=== PATIENT | male | born 1980 | race Hispanic/Latino ===

== ENCOUNTER 2019-09-07 08:26 | Emergency (ER) | payer SELFPAY ==
--- NOTE | ~2019-09-07 | XR_ITS ---
EXAMINATION: XR knee LT min 4V DATE: 09/07/2019 09:00 INDICATION: Medial left knee pain 5 days after being hit with a brick TECHNIQUE: Anteroposterior, 2 oblique and crosstable lateral views of the left knee were obtained COMPARISON: None. FINDINGS: Alignment is normal. No fracture. Joint spaces appear normal on nonweightbearing imaging. No joint e ffusion/layering lipohemarthrosis. Corticated ossicles at the distal patellar tendon consistent with sequela of chronic Strasburg-Schlatter's disease. Soft tissues are unremarkable. IMPRESSION: 1. No left knee joint effusion or acute osseous abnormality. Reviewed, dictated and finalized at location A.
--- NOTE | 2019-09-07 08:34 | ED.LOWEXIN ---
HPI - Extremity Injury (Lower) General Chief Complaint: Extremity Injury, Lower Stated Complaint: knee pain Time Seen by Provider: 09/07/19 09:00 Source: patient and RN notes reviewed Mode of arrival: ambulatory Limitations: language barrier (Patient's son able to translate) History of Present Illness HPI Narrative: 39-year-old male presents with concern for left knee injury. Reports while working he hit his left knee on a brick. Reports pain has continued for 1 week. Reports taking Tylenol with little relief. Reports pain with range of motion, weightbearing, occasionally at rest. MD complaint: knee injury Injury: Left: knee Related Data Allergies Allergy/AdvReac Type Severity Reaction Status Date / Time No Known Allergies Allergy Verified 09/07/19 08:51 Review of Systems Review of Systems: Narrative: CONSTITUTIONAL: Denies malaise, chills, sweats, or fever. CARDIOVASCULAR: Denies chest pain, palpitations, or edema. RESPIRATORY: Denies dyspnea. SKIN: Denies bruising, redness MUSCULOSKELETAL: Reports left knee pain NEUROLOGIC: Denies numbness, weakness. All systems reviewed & are unremarkable except as noted in HPI and below PMFSH Comments At time of signature, agree with nursing past medical, surgical, social and family history. There is no relevant family history pertinent to the presenting complaint Exam Narrative: Exam Narrative: GENERAL: Well-appearing, well-nourished, and in no acute distress. HEAD: Normocephalic, atraumatic. EYES: PERRLA, conjunctivae clear NECK: Supple. CHEST: Speaks in full sentences. No respiratory distress. HEART: Regular rate and rhythm. Normal and equal peripheral pulses. EXTREMITIES: Left knee has normal strength and sensation, no edema, normal range of motion. 5/5 strength with knee flexion and extension. Normal sensation with sensitivity to light touch and pain. No open wounds, no skin tenting, no devitalized tissue or atrophy, no trophic changes, no ecchymosis, no obvious deformity, alignment normal, medial tenderness, nearby joints and structures intact. Distal pulses palpable and equal bilaterally, skin warm, dry, pink. Capillary refill less than 3 seconds. Lever test and anterior drawer test negative SKIN: Warm, dry, no rash. NEURO: Alert and oriented x3. PSYCH: Normal mood and affect Course Course Emergency Course: Patient is aware of diagnosis, understands and agrees to treatment plan. Anticipatory guidance given. Patient agrees to follow-up as directed and is aware of reasons to seek care at the emergency department. Portions of this record may have been created with voice recognition software Vital Signs Vital signs: Vital Signs Temperature 98.9 F 09/07/19 08:51 Pulse Rate 79 09/07/19 08:51 Respiratory Rate 16 09/07/19 08:51 Blood Pressure 159/117 H 09/07/19 08:51 Pulse Oximetry 100 09/07/19 08:51 Temperature 98.9 F 09/07/19 08:51 Pulse Rate 79 09/07/19 08:51 Respiratory Rate 16 09/07/19 08:51 Blood Pressure 159/117 H 09/07/19 08:51 Pulse Oximetry 100 09/07/19 08:51 Reviewed. MDM - Extremity Injury (Lower) MDM Narrative Medical decision making narrative: Patients injury and pain is consistent with musculoskeletal etiology. No signs of neurological or vascular compromise on exam. Compartments and tissues are soft without signs of compartment syndrome. Pain is felt appropriate for further evaluation on an outpatient basis. Imaging Data My impression: Images reviewed, interpreted by radiologist, agree, see report. Radiologist's impression: EXAMINATION: XR knee LT min 4V DATE: 09/07/2019 09:00 INDICATION: Medial left knee pain 5 days after being hit with a brick TECHNIQUE: Anteroposterior, 2 oblique and crosstable lateral views of the left knee were obtained COMPARISON: None. FINDINGS: Alignment is normal. No fracture. Joint spaces appear normal on nonweightbearing imaging. No joint effusion/layering lipohemarthrosis. Corticated o
[2019-09-07 08:51] VITALS: BP 159/117; PULSE 79; RESP 16; TEMP 37.2; O2SAT 100
== END 2019-09-07 09:32 | disposition home or self-care (01) ==
PROVIDERS: Emergency Provider Nurse Practitioner
DX: S89.92XA Unspecified injury of left lower leg, initial encounter (principal); W22.8XXA Striking against or struck by other objects, initial encounter
CPT/HCPCS: 73564; 99203; G0463

== ENCOUNTER 2023-07-27 15:36 | Emergency (ER) | payer SELFPAY ==
[2023-07-27 15:49] VITALS: BP 141/88; PULSE 76; RESP 16; TEMP 37.1; O2SAT 99
--- NOTE | 2023-07-27 15:59 | ED.URI ---
HPI - URI/Sore Throat General Chief Complaint: Upper Respiratory Infection Stated Complaint: eyes itch,hurt,light sensitive, throat hurts Time Seen by Provider: 07/27/23 15:59 Source: patient Mode of arrival: ambulatory Limitations: no limitations Related Data Allergies Allergy/AdvReac Type Severity Reaction Status Date / Time No Known Allergies Allergy Verified 07/27/23 15:45 Course Vital Signs Vital signs: Vital Signs Temperature 37.1 C 07/27/23 15:49 Pulse Rate 76 07/27/23 15:49 Respiratory Rate 16 07/27/23 15:49 Blood Pressure 141/88 H 07/27/23 15:49 Pulse Oximetry 99 07/27/23 15:49 Oxygen Delivery Room Air 07/27/23 15:49 Temperature 37.1 C 07/27/23 15:49 Pulse Rate 76 07/27/23 15:49 Respiratory Rate 16 07/27/23 15:49 Blood Pressure 141/88 H 07/27/23 15:49 Pulse Oximetry 99 07/27/23 15:49 Oxygen Delivery Room Air 07/27/23 15:49 Discharge Plan Discharge Prescriptions: No Action ibuprofen 800 mg tablet 800 mg PO Q6H PRN (Reason: pain) Qty: 30 0RF Follow-up/Referrals: PHYSICIAN,[facility] [Primary Care Provider] -
--- NOTE | 2023-07-27 16:15 | ED.EYEPROB ---
HPI - Eye Problem General Chief complaint: Upper Respiratory Infection Stated complaint: eyes itch,hurt,light sensitive, throat hurts Time Seen by Provider: 07/27/23 15:59 Source: patient Mode of arrival: ambulatory Limitations: no limitations History of Present Illness HPI Narrative: 43-year-old male presents with complaint of redness and purulent drainage from both eyes for the past 3-4 days. Complaining of eye burning, itching and irritation. No vision changes. All systems reviewed and negative except as noted above. Related Data Allergies Allergy/AdvReac Type Severity Reaction Status Date / Time No Known Allergies Allergy Verified 07/27/23 15:45 Review of Systems Review of Systems: CONSTITUTIONAL: Denies fever, chills, or sweats. EYES: Denies visual changes . Reports redness, itching, discharge. ENT: Denies rhinorrhea, congestion, sore throat, or otalgia. CARDIOVASCULAR: Denies chest pain, palpitations, or edema. RESPIRATORY: Denies cough or dyspnea. GASTROINTESTINAL: Denies abdominal pain, nausea, vomiting, or diarrhea. GENITOURINARY: Denies dysuria or hematuria. SKIN: Denies rash or itching. MUSCULOSKELETAL: Denies back pain, joint pain, or myalgia. NEUROLOGIC: Denies headache, numbness, or weakness. PSYCHIATRIC: Denies anxiety or depression. All other systems reviewed are negative, except as documented in HPI. PMFSH Comments At time of signature, agree with nursing past medical, surgical, social and family history. There is no relevant family history pertinent to the presenting complaint. Exam Narrative: GENERAL: This is a well-nourished, well-developed patient, in no apparent distress. HEAD: normocephalic, atraumatic. EYES: PERRL. Sclera and conjunctiva erythematous bilaterally with purulent yellow drainage. Vision is grossly intact. EARS: External ears normal NOSE: External nose normal NECK: Neck supple, non-tender without lymphadenopathy, masses or thyromegaly. CARDIOVASCULAR: Regular rate and rhythm without murmurs, gallops, or rubs. RESPIRATORY: Clear to auscultation. Breath sounds equal bilaterally. No wheezes, rales, or rhonchi. SKIN: warm, Dry, intact with no suspicious lesions or rash, good texture and turgor. NEURO: awake, alert, and oriented to person, place and time. There were no obvious focal neurologic abnormalities. EXTREMITIES: No joint tenderness, effusion, or edema noted. Course Course Level of Care: Express Care Visit Vital Signs Vital signs: Vital Signs Temperature 37.1 C 07/27/23 15:49 Pulse Rate 76 07/27/23 15:49 Respiratory Rate 16 07/27/23 15:49 Blood Pressure 141/88 H 07/27/23 15:49 Pulse Oximetry 99 07/27/23 15:49 Oxygen Delivery Room Air 07/27/23 15:49 Temperature 37.1 C 07/27/23 15:49 Pulse Rate 76 07/27/23 15:49 Respiratory Rate 16 07/27/23 15:49 Blood Pressure 141/88 H 07/27/23 15:49 Pulse Oximetry 99 07/27/23 15:49 Oxygen Delivery Room Air 07/27/23 15:49 Reviewed MDM - Eye Problem MDM Narrative Medical decision making narrative: Patient is aware of diagnosis, understands and agrees to treatment plan. Anticipatory guidance given. Patient agrees to follow-up as directed and is aware of reasons to seek care at the emergency department. Portions of this record may have been created with voice recognition software Differential Diagnosis Differential diagnosis: Likely conjunctivitis Discharge Plan Discharge Clinical Impression: Acute bacterial conjunctivitis of both eyes Patient Disposition: Home, Self-Care Condition: Stable Instructions: Antibiotic Form, Conjunctivitis (ED) Additional Instructions: place antibiotic eyedrops as prescribed. Wash hands before and after placing eyedrops. Follow-up with your primary care physician if symptoms are not improving. Prescriptions: New polymyxin B sulf-trimethoprim 10,000 unit- 1 mg/mL drops 1 drp EACH EYE Q3H 7 Days Qty: 10 0
== END 2023-07-27 16:20 | disposition home or self-care (01) ==
PROVIDERS: Emergency Provider Nurse Practitioner Family
DX: H10.33 Unspecified acute conjunctivitis, bilateral (principal)
CPT/HCPCS: 99213; G0463

== ENCOUNTER 2023-11-05 16:33 | Emergency (ER) | payer SELFPAY ==
--- NOTE | 2023-11-05 16:39 | ECG_ITS ---
Test Date: 2023-11-05 16:57:17 Measurements Intervals [place] Rate: 83 P: 40 VA: 173 QRS: -8 QRSD: 104 T: 31 QT: 361 QTc: 425 Interpretive Statements SINUS RHYTHM LOW QRS VOLTAGE INCOMPLETE RIGHT BUNDLE BRANCH BLOCK BORDERLINE ECG No previous ECG available for comparison Electronically Signed On 11-06-2023 13:14:19 CDT by Nino Patel M.D.
--- NOTE | 2023-11-05 16:39 | ED.SYNCOPE ---
HPI - Syncope General Chief Complaint: Dizziness Stated Complaint: fainted 2x yesterday, works outside,dizzy Time Seen by Provider: 11/05/23 16:36 Source: patient Mode of arrival: ambulatory Limitations: no limitations History of Present Illness HPI narrative: Onur is a 43-year-old male patient presenting to the clinic today with complaints of syncopal episode outside x2 yesterday and experiencing dizziness today. He reports he has been working outside in the heat over the past few days. Is states that he had cramping in his abdomen and in his lower extremities yesterday. 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 Denies any chest pain, shortness breath, or visual changes. No past cardiac history. Related Data Allergies Allergy/AdvReac Type Severity Reaction Status Date / Time No Known Allergies Allergy Verified 07/27/23 15:45 Review of Systems Review of Systems: Pertinent positives per HPI. Patient denies any fever, chills, rash, headache, visual changes, cough, runny nose, sore throat, shortness of breath, chest pain, palpitations, nausea, vomiting, diarrhea, constipation, abdominal pain, or any urinary issues. PMFSH Comments At the time of my signature, I reviewed and agree with the nursing past medical, surgical, social, and family history. There is no relevant family history pertinent to the patient complaint. Exam Narrative: General: Well-developed, well nourished, in no apparent distress Head: Normocephalic, atraumatic Eyes: Pupils equally round and reactive to light bilaterally, EOM intact, sclera and conjunctive clear, no discharge, lids normal Ears: TMs intact and clear, ear canals clear, no drainage, grossly hearing normal. Nose: Nares patent, no discharge, no inflammation, no sinus tenderness. Mouth: Oropharynx without lesions or masses, good dentition, MM dry. Tongue midline, even rise and fall of uvula Neck: Supple, trachea midline, no enlargement of anterior or posterior cervical nodes, no thyroid masses or goiter palpable. Cardio: Regular rate and rhythm, s1 and s2 normal, no murmur appreciated. Resp: Clear to auscultation bilaterally anteriorly and posteriorly, no rhonchi, rales, wheezing or rubs Musculoskeletal: No deformity, non-tender to palpation, grossly normal range of motion, muscle strength strong and equal, peripheral pulse strong, no edema, no cyanosis, normal gait and station Neuro: Alert and oriented x4 with normal speech, no focal deficits, cranial nerves I through XII intact, muscle strength 5 out of 5, sensation intact bilaterally, negative Romberg test Course Course Emergency Course: Portions of this record may have been created with voice recognition software. Level of Care: Express Care Visit Vital Signs Vital signs: Vital Signs Temperature 37.5 C 11/05/23 16:45 Pulse Rate 85 11/05/23 16:45 Respiratory Rate 16 11/05/23 16:45 Blood Pressure 128/81 11/05/23 16:45 Pulse Oximetry 98 11/05/23 16:45 Oxygen Delivery Room Air 11/05/23 16:45 Temperature 37.5 C 11/05/23 16:45 Pulse Rate 85 11/05/23 16:45 Respiratory Rate 16 11/05/23 16:45 Blood Pressure 128/81 11/05/23 16:45 Pulse Oximetry 98 11/05/23 16:45 Oxygen Delivery Room Air 11/05/23 16:45 Vital signs reviewed MDM - Syncope MDM Narrative Medical decision making narrative: At the time of visit patient is resting comfortably on the exam table. Patient appears to be nontoxic. EKG: EKG shows normal sinus rhythm with a heart rate of 83 beats per minute without ST elevation, depression, or T-wave inversion. Labs: Blood sugar was 106. Urinalysis shows 3+ blood and 1+ protein. Plan: I suspect patient had experienced heat exhaustion/dehydration/dizziness/proteinurea/hematuria. Recommend transfer to the ER to rule out acute kidney injury/electrolyte imbalance/ fluids. Patient would like to be transfer to [facility]
[2023-11-05 16:45] VITALS: BP 128/81; PULSE 85; RESP 16; TEMP 37.5; O2SAT 98
[2023-11-05 16:59] LABS: Glucose Point of Care 106 mg/dl (65-105)
[2023-11-05 17:10] LABS: EDUAAPPEAR Clear; EDUABILI Negative; EDUABLOOD 3+; EDUACOLOR1 Yellow; EDUAGLUCOSE Negative; EDUAKETONE Negative; EDUALEUKO Negative; EDUANITRATE Negative; EDUAPH 5.5; EDUAPROTEIN 1+; EDUASPGRAVITY 1.025; EDUAUROBILI 0.2
== END 2023-11-05 17:18 | disposition short-term general hospital (02) ==
PROVIDERS: Emergency Provider Nurse Practitioner Family
DX: R42 Dizziness and giddiness (principal); R31.9 Hematuria, unspecified; R80.9 Proteinuria, unspecified; T67.5XXA Heat exhaustion, unspecified, initial encounter; X32.XXXA Exposure to sunlight, initial encounter
CPT/HCPCS: 81003; 82948; 93005; 99213; G0463

== ENCOUNTER 2023-11-05 18:28 | Emergency (ER) | payer MEDICAID, SELFPAY ==
[2023-11-05] VITALS (16 sets, daily range): BP systolic 124–141; BP diastolic 85–95; PULSE 93; RESP 18; TEMP 37.1; O2SAT 94–99
--- NOTE | ~2023-11-05 | XR_ITS ---
EXAMINATION: XR chest 1V portable DATE: 11/05/2023 19:43 INDICATION: Syncope. TECHNIQUE: A single frontal view of the chest was obtained on 2 radiographs. COMPARISON: None. FINDINGS: There is no pneumonia, pleural effusion, or pneumothorax. The heart size is normal. IMPRESSION: 1. No acute cardiopulmonary disease. Reviewed, dictated and finalized at location A.
--- NOTE | ~2023-11-05 | CT_ITS ---
EXAMINATION: CT lumbar spine wo con DATE: 11/05/2023 21:40 INDICATION: Fall. TECHNIQUE: Computed tomography (CT) of the lumbar spine was performed without intravenous contrast. A utomated exposure control and iterative reconstruction technique were employed. The dose-length produ ct was 679.17 mGy-cm. COMPARISON: None FINDINGS: Alignment normal. Vertebral body heights are normal. There is mildly decreased disc height at L2-L3 with endplate remodeling. The following disc levels are specifically discussed: L1-L2: The disc does not extend beyond the endplate margin. There is moderate bilateral facet joint o steoarthritis. There is no neural foraminal stenosis. There is no central canal stenosis. L2-L3: The disc is bulging. There is mild bilateral facet joint osteoarthritis. There is no neural fo raminal stenosis. There is mild central canal stenosis. L3-L4: The disc is bulging. There is mild bilateral facet joint osteoarthritis. There is mild left ne ural foraminal stenosis. There is no central canal stenosis. L4-L5: The disc does not extend beyond the endplate margin. There is severe right and moderate left f acet joint osteoarthritis. There is no neural foraminal stenosis. There is no central canal stenosis. L5-S1: The disc is bulging. There is severe right and moderate left facet joint osteoarthritis. There is mild bilateral neural foraminal stenosis. There is mild central canal stenosis. IMPRESSION: 1. No fracture. 2. Mild lumbar spondylosis. Reviewed, dictated and finalized at location A.
--- NOTE | ~2023-11-05 | CT_ITS ---
EXAMINATION: CT facial bones wo con DATE: 11/05/2023 21:39 INDICATION: Fall. Syncope. TECHNIQUE: Computed tomography (CT) of the facial bones and maxillofacial region was performed withou t intravenous contrast. Automated exposure control and iterative reconstruction technique were employ ed. The dose-length product was 468.35 mGy-cm. COMPARISON: None. FINDINGS: The orbits are normal. There is mild mucosal thickening in the paranasal sinuses. The masto id air cells are normal. There is rightward deviation of the nasal septum. No fracture. IMPRESSION: 1. No fracture. Reviewed, dictated and finalized at location A. IMPRESSION: 1. No fracture.
--- NOTE | ~2023-11-05 | CT_ITS ---
EXAMINATION: CT brain wo con DATE: 11/05/2023 21:39 INDICATION: Fall. Syncope. TECHNIQUE: Computed tomography (CT) of the head was performed without intravenous contrast. The mA wa s adjusted according to patient size. Iterative reconstruction technique was employed. The dose-lengt h product was 605.33 mGy-cm. COMPARISON: None FINDINGS: There is no intracranial hemorrhage, acute infarction, or abnormal intracranial mass lesion . The ventricles are normal in size. The orbits are normal. There is mild mucosal thickening in the p aranasal sinuses. The mastoid air cells are normal. IMPRESSION: 1. Normal brain. Reviewed, dictated and finalized at location A. IMPRESSION: 1. Normal brain.
--- NOTE | 2023-11-05 19:30 | ECG_ITS ---
Test Date: 2023-11-05 20:05:07 Measurements Intervals [place] Rate: 77 P: 36 NV: 196 QRS: -2 QRSD: 94 T: 27 QT: 392 QTc: 444 Interpretive Statements SINUS RHYTHM INCOMPLETE RIGHT BUNDLE BRANCH BLOCK BORDERLINE ECG Compared to ECG 11/05/2023 16:57:17 NO DIFFERENCE Electronically Signed On 11-06-2023 13:16:28 CDT by Nino Patel M.D.
--- NOTE | 2023-11-05 19:53 | ED.DIZZY ---
HPI - Dizziness General Chief Complaint: Syncope Stated Complaint: heat exhaustion Time Seen by Provider: 11/05/23 19:02 History of Present Illness HPI Narrative: Patient is a 43-year-old male who presents to the emergency this evening from an urgent care due to a syncopal episode that occurred yesterday. 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 Patient then had another syncopal episode while standing and fell backward to the ground. Patient is also complaining of lower back pain and states that he has been having this pain on and off for the past 10 years but has noticed that it has gotten worse in the past year. Denies any chest pain or shortness of breath, any nausea or vomiting and denies any dizziness, focal weakness, numbness and tingling. Patient denies any significant past medical history and states that he only takes omeprazole for acid reflux. Patient is Indonesian-speaking and interpretations are presents were used to obtain HPI and ROS. Related Data Allergies Allergy/AdvReac Type Severity Reaction Status Date / Time No Known Allergies Allergy Verified 07/27/23 15:45 Review of Systems Review of Systems: All systems are reviewed and are negative unless stated otherwise in the HPI. Exam Narrative: General: Alert, awake, afebrile, in no acute distress. HEENT: PERRL, no rhinorrhea, no post nasal drip, oropharynx clear. Cardiovascular: Regular rate and rhythm, no murmurs, rubs or gallops, no peripheral edema. Respiratory: Clear to auscultation bilaterally, no tachypnea, no wheezing, no rhonchi, no rubs, no respiratory distress. Abdomen: Soft, nontender, nondistended, no rebound, no guarding, no peritoneal signs. Musculoskeletal: No joint swelling or deformity, normal muscle tone. Back: No midline tenderness to palpation over the cervical, thoracic or lumbar spine, no step-offs or deformities. Skin: No rashes or petechia, no signs of infection. Neurological: Alert and oriented to person, place, and time. Follows all commands. No focal deficits, speech is clear and fluent. Course Vital Signs Vital signs: Vital Signs Pulse Oximetry 97 11/05/23 18:42 Temperature 98.7 F 11/05/23 19:09 Pulse Rate 93 11/05/23 19:09 Respiratory Rate 18 11/05/23 19:09 Blood Pressure 141/95 H 11/05/23 20:02 Pulse Oximetry 95 11/05/23 20:02 Oxygen Delivery Room Air 11/05/23 19:15 MDM - Dizziness MDM Narrative Medical decision making narrative: The patient was evaluated by myself in the emergency department. History is obtained from patient who is an independent historian and physical exam was performed. External medical records were reviewed at this time. IV was established and pertinent tests were ordered. Patient was administered a 1 L IV fluid bolus with normal saline. EKG was obtained which revealed sinus rhythm rate of 77 beats per minute. No ST changes, T wave inversions or evidence of acute ischemia. EKG was independently interpreted by me and is currently pending official cardiology read. Laboratory results obtained revealing an elevated CPK of 340 otherwise unremarkable. At this time patient was administered a 2 L IV fluid bolus with normal saline. Urinalysis revealed 2+ blood otherwise unremarkable. Imaging studies obtained included CXR, CT brain, facial bones and lumbar spine without IV contrast were obtained and were all independently interpreted by me revealing no acute process. Pending final radiology interpretation. Patient was informed of his blood work and imaging results at bedside via Indonesian interpretation services in all of his questions were answered. Differential diagnosis considerations include dehydration, electrolyte derangements, heat exhaustion, arrhythmia. Comorbidities impacting this visit include none.
[2023-11-05] MEDS: SODIUM CHLORIDE 0.9% IV 1,000 ML 999 ML IV CONT ×2 (19:59→21:07)
[2023-11-05 20:11] LABS: Basophils Percent Auto 0.3 % (0.2-1.2); Eosinophils Absolute Auto 0.1 K/mm3 (0-0.3); Eosinophils Percent Auto 1.1 % (0-4.4); Hematocrit 42.1 % (42.0-52.0); Immature Granulocyte Absolute 0.02 K/mm3 (0.00-0.031); Immature Granulocyte Percent A 0.2 % (0-0.5); Lymphocytes Absolute Auto 3.18 K/mm3 (0.9-3.2); Lymphocytes Percent Auto 36.4 % (18.3-44.2); Mean Corpuscular HGB Conc 35.6 g/dl (32-36); Mean Corpuscular Hemoglobin 30.1 pg (26-34); Mean Corpuscular Volume 84.4 fl (80-100); Mean Platelet Volume 11.4 fl (7.4-10.4); Monocytes Absolute Auto 0.7 K/mm3 (0.1-0.6); Monocytes Percent Auto 7.6 % (2.6-8.5); Neutrophils Absolute Auto 4.8 K/mm3 (1.3-6.7); Neutrophils Percent Auto 54.4 % (45.5-73.1); Platelet Count Result 252 k/mm3 (150-375); Red Blood Count 4.99 M/mm3 (4.6-6.20); Red Cell Distribution Width 12.6 % (11.5-14.5); White Blood Count 8.7 K/mm3 (4.5-10.0)
[2023-11-05 20:24] LABS: Alanine Aminotransferase 52 U/L (6-50); Albumin Level 4.7 g/dL (3.5-5.1); Alkaline Phosphatase 117 U/L (38-126); Anion Gap 14 mmol/L (4-12); Aspartate Amino Transferase 48 U/L (17-59); Bilirubin,Total 0.4 mg/dL (0.2-1.3); Blood Urea Nitrogen 22 mg/dL (9-20); Calcium 8.9 mg/dL (8.4-10.2); Carbon Dioxide 24 mmol/L (22-30); Chloride 100 mmol/L (98-107); Creatine Kinase 340 U/L (55-170); Estimated CRCL calculation 75 ml/min; Estimated Glomerular Filt Rate > 60; Glucose 104 mg/dL (65-110); Magnesium 2.1 mg/dL (1.6-2.3); Potassium 3.7 mmol/L (3.4-5.0); Sodium 138 mmol/L (137-145)
[2023-11-05 21:47] LABS: Add Urine Microscopic? YES; Appearance Urine Clear (Clear); Bacteria Urine None Seen /hpf; Bilirubin Urine Negative (Negative); Blood Urine 2+ (Negative); Color Urine Yellow (Yellow); Glucose Urine UA Negative (Negative); Ketones Urine Negative (Negative); Leukocyte Esterase Ur Negative LEU/UL (Negative); Nitrate Urine Negative (Negative); Non Pathogenic Casts 0-2; Protein Urine Negative (Negative); RBC Urine 0-2 /hpf (0-2); Specific Grav Ur 1.017 (1.001-1.035); Squamous Epithelial Cell Urine None Seen /hpf (Few); Urobilinogen Urine 0.2 mg/dL (<2.0); WBC Urine 0-5 /hpf (0-3); pH Urine 5.5 (5.0-9.0)
== END 2023-11-05 23:07 | disposition home or self-care (01) ==
PROVIDERS: Emergency Provider Emergency Medicine
DX: T67.5XXA Heat exhaustion, unspecified, initial encounter (principal); E86.0 Dehydration; R55 Syncope and collapse; I45.10 Unspecified right bundle-branch block; M47.816 Spondylosis without myelopathy or radiculopathy, lumbar region; X30.XXXA Exposure to excessive natural heat, initial encounter
CPT/HCPCS: 36415; 70450; 70486; 71045; 72131; 80053; 81001; 81003; 82550; 82948; 83735; 85025; 93005; 96360; 96361; 99284; J7030

== ENCOUNTER 2023-11-06 15:55 | Observation (INO) | payer MEDICAID, SELFPAY ==
--- NOTE | ~2023-11-06 | US_ITS ---
US abdomen limited INDICATION: Epigastric discomfort PROCEDURE: Realtime right upper abdominal ultrasound. COMPARISON: No prior studies for comparison. FINDINGS: The pancreas is normal without focal mass or pancreatic ductal dilation. Liver echotexture is normal without focal mass or intrahepatic biliary dilatation. There is diffuse fatty infiltration of the liver with focal fatty sparing near the mckayla hepatis. There is normal directional flow in th e portal vein. The gallbladder is normal without stones, gallbladder wall thickening or pericholecystic fluid. There is gallbladder sludge. Common bile duct measures 4 mm. No sonographic Rothman's sign. IMPRESSION: 1: Fatty infiltration of the liver. 2: Gallbladder sludge. Reviewed, dictated and finalized at location B.
--- NOTE | ~2023-11-06 | CT_ITS ---
EXAMINATION: CT abdomen pelvis w con DATE: 11/06/2023 19:14 INDICATION: Abdominal pain. TECHNIQUE: Computed tomography (CT) of the abdomen and pelvis was performed with 100 mL Omnipaque 350 intravenous contrast. Automated exposure control and iterative reconstruction technique were employe d. The dose-length product was 466.85 mGy-cm. COMPARISON: None. FINDINGS: The visualized portions of the lung bases demonstrate mild atelectasis. No pleural effusion . The heart size is normal. No pericardial effusion. The liver, gallbladder, spleen, pancreas, adrena l glands, and kidneys are normal. There are no dilated loops of bowel. The appendix is normal. There is a left inguinal hernia containing fat. The prostate is mildly enlarged. There are no pathologicall y enlarged lymph nodes. There is no free intraperitoneal fluid. There is an umbilical hernia containi ng fat. There is mild thoracic and lumbar spondylosis. IMPRESSION: 1. Umbilical hernia and left inguinal hernia containing fat. Reviewed, dictated and finalized at location A.
--- NOTE | ~2023-11-06 | XR_ITS ---
EXAMINATION: XR chest 2V 11/06/2023 16:46 INDICATION: Abdominal pain. PROCEDURE: 2 view chest COMPARISON: 11/05/2023 FINDINGS: The lungs are clear. The cardiomediastinal silhouette is within normal limits. There are no pleural effusions. There is no pneumothorax suspected. IMPRESSION: 1: NO ACUTE CARDIOPULMONARY DISEASE. Reviewed, dictated and finalized at location B.
--- NOTE | ~2023-11-06 | US_ITS ---
EXAMINATION: US carotid duplex BI DATE: 11/07/2023 07:58 INDICATION: Syncope TECHNIQUE: Grayscale, color Doppler, and pulsed Doppler images of the cervical carotid arteries were obtained. The degree of vessel stenosis is placed in one of the following categories: normal, <50%, 5 0-69%, >=70% but less than near-occlusion, near-occlusion, or total occlusion. Note that percent sten osis relative to normal distal artery lumen diameter is indirectly measured from velocity measurement s as described by Demarco, et al. Radiology 2003; 229:340-346. Notes: Normal: Peak systolic velocity <125 centimeters/sec and no plaque <50%. Peak systolic velocity <125 ( EDV <40; ICA/CCA PSV ratio <2.0; used these factors only a tandem lesions or low cardiac output or co ntralateral disease) 50-69 %: PSV 125-230 (EDV 40-100; ratio 2-4) >= 70% but less than near occlusion: PSV greater than 230 (EDV > 100; ratio> 4.0) Near Occlusion: PSV that is variable; markedly narrowed lumen Occlusion: Absent flow on color/spectral Doppler and no lumen on burns scale. COMPARISON: None. FINDINGS: RIGHT: The right common carotid artery (CCA) peak systolic velocity (PSV) is 81 cm/s. The right internal car otid artery (ICA) PSV is 69 cm/s. The right ICA end-diastolic velocity (EDV) is 31 cm/s. The right IC A/CCA PSV ratio is 0.9. The external carotid artery (ECA) PSV is 60 cm/s. There is antegrade flow in the right vertebral artery. LEFT: The left CCA PSV is 76 cm/s. The left ICA PSV is 70 cm/s. The left ICA EDV is 31 cm/s. The left ICA/C CA PSV ratio is 0.9. The ECA PSV is 54 cm/s. There is antegrade flow in the left vertebral artery. IMPRESSION: 1. Less than 50% stenosis in the right internal carotid artery by sonographic criteria. 2. Less than 50% stenosis in the left internal carotid artery by sonographic criteria. Reviewed, dictated and finalized at location B. IMPRESSION: 1. Less than 50% stenosis in the right internal carotid artery by sonographic danyel loyola. 2. Less than 50% stenosis in the left internal carotid artery by sonographic douglas bustillos.
[2023-11-06 15:58] VITALS: BP 142/93; PULSE 80; RESP 16; TEMP 36.4; O2SAT 98
[2023-11-06 16:31] VITALS: BP 135/96; PULSE 79; RESP 17; O2SAT 95
--- NOTE | 2023-11-06 16:36 | ECG_ITS ---
Test Date: 2023-11-06 17:02:18 Measurements Intervals [place] Rate: 73 P: 47 [place]: 182 QRS: -8 QRSD: 96 T: 31 QT: 369 QTc: 409 Interpretive Statements SINUS RHYTHM INCOMPLETE RIGHT BUNDLE BRANCH BLOCK BORDERLINE ECG Compared to ECG 11/05/2023 20:05:07 NO DIFFERENCE Electronically Signed On 11-07-2023 07:27:46 CDT by Nino Patel M.D.
[2023-11-06 17:12] LABS: Basophils Percent Auto 0.4 % (0.2-1.2); Eosinophils Absolute Auto 0.1 K/mm3 (0-0.3); Eosinophils Percent Auto 0.7 % (0-4.4); Hemoglobin 14.7 g/dL (14.0-18.0); Immature Granulocyte Absolute 0.02 K/mm3 (0.00-0.031); Immature Granulocyte Percent A 0.3 % (0-0.5); Lymphocytes Percent Auto 30.6 % (18.3-44.2); Mean Corpuscular Volume 85.7 fl (80-100); Mean Platelet Volume 11.3 fl (7.4-10.4); Monocytes Absolute Auto 0.6 K/mm3 (0.1-0.6); Monocytes Percent Auto 8.8 % (2.6-8.5); Neutrophils Absolute Auto 4.3 K/mm3 (1.3-6.7); Neutrophils Percent Auto 59.2 % (45.5-73.1); Platelet Count Result 243 k/mm3 (150-375); Red Cell Distribution Width 12.8 % (11.5-14.5); White Blood Count 7.2 K/mm3 (4.5-10.0)
[2023-11-06 17:22] LABS: Alanine Aminotransferase 46 U/L (6-50); Albumin Level 4.5 g/dL (3.5-5.1); Alkaline Phosphatase 88 U/L (38-126); Anion Gap 11 mmol/L (4-12); Aspartate Amino Transferase 37 U/L (17-59); Bilirubin,Total 0.5 mg/dL (0.2-1.3); Blood Urea Nitrogen 13 mg/dL (9-20); Calcium 8.6 mg/dL (8.4-10.2); Carbon Dioxide 25 mmol/L (22-30); Chloride 102 mmol/L (98-107); Estimated CRCL calculation 101 ml/min; Estimated Glomerular Filt Rate > 60; Glucose 97 mg/dL (65-110); Lipase 79 U/L (23-300); Potassium 3.7 mmol/L (3.4-5.0); Sodium 138 mmol/L (137-145)
[2023-11-06 18:14] VITALS: BP 131/91; PULSE 70; RESP 18; O2SAT 95
--- NOTE | 2023-11-06 18:24 | ED.ABDPAIN ---
HPI - Abdominal Pain General Chief Complaint: Abdominal Pain Stated Complaint: abd pain, headache Time Seen by Provider: 11/06/23 16:10 History of Present Illness HPI narrative: Pt is a 43-year-old male who presents to the ER for second day in a row with complaints of two syncopal episodes, headache, and abdominal pain. He received a head CT scan yesterday and does not want to have another one tomorrow because he doesn't want the extra radiation. Pt endorses positive LOC. He reports he gets abdominal pain, then his head starts hurting and he gets tingling in my hands. Pt reports he has been taking Prilosec but it has not been helping his GERD. He had a bowel movement this morning and reports no abnormalities in his urination. He denies chest pain, shortness of breath, changes in vision, or one-sided numbness/weakness. Related Data Home Medications Medication Instructions Recorded Confirmed omeprazole 20 mg capsule,delayed 20 mg PO BID 11/06/23 11/06/23 release Allergies Allergy/AdvReac Type Severity Reaction Status Date / Time No Known Allergies Allergy Verified 11/06/23 22:45 Review of Systems Review of Systems: All systems reviewed & are unremarkable except as noted in HPI and below PMFSH Past Medical History Medical History (Updated 11/07/23 @ 02:38 by Ashok Bernardo PA-C) GERD with esophagitis Social History Social History Smoking status: Never smoker Alcohol intake: never Substance use: never Do You Feel Safe in your Home?: Yes Lack of Transportation: No Lack of Food: Never True Current Housing: I Have Housing Concerned About Future Housing: No Difficulty Paying Gas/Electric Bills: No Difficulty Paying for Meds: No Currently Unemployed: No Education: High School Diploma/GED Difficulty w/ Childcare or Family Care: No Spiritual care concerns: No Exam Narrative: GENERAL: Well-appearing, well-nourished and in no acute distress. HEENT: Head normocephalic, atraumatic. Eyes pupils equal round and reactive to light, extraocular movements intact. NECK: Supple, normal range of motion, no JVD. No lymphadenopathy. CARDIAC: Regular rate and rhythm without murmurs, rubs or gallops. RESPIRATORY: Clear to auscultation bilaterally. No wheezes, rales or rhonchi. ABDOMEN: Soft, nontender, normoactive bowel sounds throughout, no guarding, no rebound. No masses appreciated. EXTREMITIES: Normal range of motion, no swelling, clubbing or other deformities. NEUROLOGICAL: Cranial nerves II through XII grossly intact, no focal deficits noted. Normal speech. SKIN: Warm, dry, normal color, no rashes, no lesions. Course Vital Signs Vital signs: Vital Signs Temperature 97.6 F 11/06/23 15:58 Pulse Rate 80 11/06/23 15:58 Respiratory Rate 16 11/06/23 15:58 Blood Pressure 142/93 H 11/06/23 15:58 Pulse Oximetry 98 11/06/23 15:58 Temperature 97.2 F L 11/06/23 22:51 Pulse Rate 70 11/07/23 00:34 Respiratory Rate 18 11/06/23 22:51 Blood Pressure 134/97 H 11/07/23 00:34 Pulse Oximetry 96 11/06/23 22:51 Oxygen Delivery Room Air 11/06/23 22:30 MDM - Abdominal Pain MDM Narrative Medical decision making narrative: Pt is a 43-year-old male who presents to the ER for second day in a row with complaints of two syncopal episodes, headache, and abdominal pain. He received a head CT scan yesterday and does not want to have another one tomorrow because he doesn't want the extra radiation. Pt endorses positive LOC. He reports he gets abdominal pain, then his head starts hurting and he gets tingling in my hands. Pt reports he has been taking Prilosec but it has not been helping his GERD. He had a bowel movement this morning and reports no abnormalities in his urination. He denies chest pain, shortness of breath, changes in vision, or one-sided numbness/weakness. Pt's physical examination was un
[2023-11-06] MEDS: MAG HYDROX/AL HYDROX/SIMETH 30 ML UDC PO (19:07)
[2023-11-06] MEDS: SODIUM CHLORIDE 0.9% IV 1,000 ML 999 ML IV CONT (19:08)
[2023-11-06] MEDS: KETOROLAC 30 MG/ML VIAL (*BKC) IV PUSH (19:08)
[2023-11-06 19:52] LABS: Lactic Acid Reflex 1.2 mmol/L (0.7-2.0)
[2023-11-06 19:54] LABS: INR 0.9; Partial Thromboplastin Time 28.1 Seconds (22.3-36.8); Prothrombin Time 12.8 Seconds (11.1-14.7)
[2023-11-06 19:55] LABS: Magnesium 2.1 mg/dL (1.6-2.3)
[2023-11-06 20:08] LABS: NT Pro B Type Natriuretic Pept 49 pg/mL (19.9-100); Troponin I < 0.012 ng/mL (0.000-0.034)
[2023-11-06 20:09] LABS: D Dimer < 0.27 ug/mL (<0.48)
[2023-11-06 20:33] LABS: Influenza A QL RT-PCR Negative (Negative); Influenza B QL RT-PCR Negative (Negative); RSV RNA, RT-PCR Negative (Negative); SARS-CoV-2 RNA PCR Negative (Negative)
[2023-11-06 21:59] VITALS: BP 102/66; PULSE 72; RESP 18; TEMP 36.6; O2SAT 98
--- NOTE | 2023-11-06 22:17 | ADMGEN ---
This patient, Onur Guillermo, was admitted to Medical Room 349-01. Patient/family oriented to hospital policies and general routines including ID bracelet, bed and alarms, visiting hours, pain management, procedures, bathroom and other care routines, personal items, smoking policy, room service/diet, and visiting hours. Information on how to activate the Rapid Response Team has been discussed. Patient/Family are encouraged to report perceived risks to care and to ask questions if they do not understand what they are told or what they should do.
--- NOTE | 2023-11-06 22:26 | PM.IMHP ---
H&P: HPI History of Present Illness Date/Time: 11/06/23 22:26 Chief Complaint: Epigastric discomfort Narrative: This is a 43 year old male patient who came to the emergency room today with complaints of abdominal pain. This is his 2nd day in a row with complaints of 2 syncopal episodes and abdominal pain. He was year yesterday and had a CT scan and does not want a repeat CT scan. The patient stated that he has been taking Prilosec for his stomach and that does not seem to be helping. He also stated that he has been having abdominal pain for 3 years. He rates his pain a 5/10. He denies any nausea vomiting at this time. No diarrhea. Did not notice any blood in his stool. He also endorses a headache on the right side of his head. Today he was found to be negative for influenza A/B RSV and COVID. Abdominal pelvis CT was read as umbilical hernia and left inguinal hernia containing fat. However he is complaining of epigastric discomfort. Chest x-ray was read as no acute cardiopulmonary disease. The patient was given IV fluids Toradol and Mylanta as well as Zofran in the emergency room. His blood pressure is slightly elevated to 131/91 and 142/93. The patient is being admitted to observation status on the date of service of 11/06/2023. Review of Systems Review of Systems: All systems reviewed & are unremarkable except as noted in HPI and below Constitutional: Constitutional: Reports as per HPI and Reports no additional constitutional complaints Eyes: Eyes: Reports as per HPI and Reports no additional eye complaints ENT: Reports system reviewed and no additional complaints, except as documented and Reports Normal hearing present Cardiovascular: Cardiovascular: Reports no additional cardiovascular complaints Respiratory: Respiratory: Reports as per HPI and Reports no additional respiratory complaints Gastrointestinal: Gastrointestinal: Reports as per HPI and Reports no additional gastrointestinal complaints Musculoskeletal: Musculoskeletal: Reports no additional musculoskeletal complaints Integumentary/Breasts: Skin/Breast: Reports system reviewed and no additional complaints, except as docu Neurologic: Reports system reviewed and no additional complaints, except as documented and Reports Normal hearing present Psychiatric: Psychiatric: Reports no additional psychiatric complaints and Reports as per HPI Endocrine: Endocrine: Reports no additional endocrine complaints Hematologic/Lymphatic: Hematologic/Lymphatic: Reports no additional hematologic/lymphatic complaints Allergic/Immunologic: Allergic/Immunologic: Reports no additional allergic/immunologic complaints [facility] Past Medical History Medical History (Updated 11/06/23 @ 23:50 by Tara Trujillo NP) GERD with esophagitis Social History Social History Smoking status: Never smoker Alcohol intake: never Substance use: never Do You Feel Safe in your Home?: Yes Lack of Transportation: No Lack of Food: Never True Current Housing: I Have Housing Concerned About Future Housing: No Difficulty Paying Gas/Electric Bills: No Difficulty Paying for Meds: No Currently Unemployed: No Education: High School Diploma/GED Difficulty w/ Childcare or Family Care: No Spiritual care concerns: No Meds Home Medications and Allergies Home Medications Medication Instructions Recorded Confirmed Type omeprazole 20 mg capsule,delayed 20 mg PO BID 11/06/23 11/06/23 History release Allergies Allergy/AdvReac Type Severity Reaction Status Date / Time No Known Allergies Allergy Verified 11/06/23 22:45 Vital Signs Vital Signs - 24 hr 11/06/23 15:58 11/06/23 16:31 11/06/23 18:14 Temperature 36.4 C Pulse Rate 80 79 70 Respiratory Rate 16 17 18 Blood Pressure 142/93 H 135/96 H 131/91 H Pulse Oximetry 98 95 95 11/06/23 21:59 Temperature 36.6 C Pulse Rate 72 Res
[2023-11-06 22:44] VITALS: PULSE 71
[2023-11-06 22:48] VITALS: BMI 29.2
[2023-11-06 22:51] VITALS: BP 139/87; PULSE 66; RESP 18; TEMP 36.2; O2SAT 96
[2023-11-07] VITALS (16 sets, daily range): BP systolic 93–159; BP diastolic 59–102; PULSE 61–78; RESP 14–20; TEMP 36.2–36.9; O2SAT 95–99
--- NOTE | 2023-11-07 | ECHO_ITS ---
Patient Info Name: Onur Guillermo Age: 43 years : 1980 Gender: Male Ht: 67 in Wt: 186 lbs BSA: 2.02 m2 HR: 78 bpm BP: 134 / 97 mmHg Heart Rhythm: Sinus Rhythm Technical Quality: Good Exam Date: 11/07/2023 11:54 AM Exam Location: Echo Lab Patient Status: Outpatient Admit Date: 11/06/2023 Staff Ordering Physician: Tara Trujillo NP Code And Test Clerk: Darby Torres RDCS Attending Provider: Inder Abraham MD Referring Physician: Ronnie BRUCE; Exam Type: CA echo doppler color flow Study Info Indications - syncope Complete two-dimensional, color flow and Doppler transthoracic echocardiogram is performed. Summary 1. Complete two-dimensional, color flow and Doppler transthoracic echocardiogram is performed. 2. Left ventricular chamber dimension is normal. 3. Left ventricular systolic function is normal, estimated at 60-65%. 4. The left ventricular diastolic function is normal. 5. E/e' 7 is not elevated. 6. There is trace mitral valve regurgitation. 7. There is trace tricuspid valve regurgitation. 8. No pulmonary hypertension, estimated pulmonary arterial systolic pressure is 23 mmHg. Left Ventricle E/e' 7 is not elevated. Left ventricular chamber dimension is normal. Left ventricular systolic function is normal, estimated at 60-65%. The left ventricular diastolic function is normal. Right Ventricle Right ventricular systolic function is normal and with normal TAPSE 2.6 cm. Right ventricular chamber dimension is normal. Left Atria Left atrial chamber dimension is normal. Right Atria Right atrial chamber dimension is normal. Aortic Valve The aortic valve is trileaflet. There is no aortic valve stenosis. There is no aortic valve regurgitation. Pulmonic Valve There is no pulmonic regurgitation. Mitral Valve There is no mitral valve stenosis. There is trace mitral valve regurgitation. Tricuspid Valve There is trace tricuspid valve regurgitation. No pulmonary hypertension, estimated pulmonary arterial systolic pressure is 23 mmHg. Pericardium/Pleural There is no pericardial effusion. Inferior Vena Cava Normal inferior vena cava with >50% collapse upon inspiration consistent with normal right atrial pressure, 5 mmHg. Aorta The aortic root size at the sinus of Valsalva is normal. Left Ventricular Outflow Tract Name Value Normal LVOT 2D LVOT Diameter 2.0 cm LVOT Doppler LVOT Peak Gradient 3 mmHg LVOT Mean Gradient 1 mmHg LVOT VTI 17 cm LVOT VTI/AV VTI Ratio 0.9 LVOT Stroke Volume 55 ml LVOT CO 3.6 l/min LVOT CI 1.8 l/min/m2 Pulmonic Valve Name Value Normal PV Doppler PV Peak Gradient 3 mmHg Mitral Valve N
[2023-11-07] MEDS: SODIUM CHLORIDE 0.9% IV 1,000 ML 100 ML IV CONT ×2 (00:17→13:58)
[2023-11-07] MEDS: FAMOTIDINE 20 MG/2 ML VIAL IV PUSH ×3 (00:25→20:31)
[2023-11-07 00:48] LABS: Amphetamine Screen Urine Negative (Negative); Barbiturate Screen Urine Negative (Negative); Benzodiazepines Screen Urine Negative (Negative); Cannabinoid Screen Urine Negative (Negative); Cocaine Screen Urine Negative (Negative); Methadone Screen Urine Negative (Negative); Opiate Screen Urine Negative (Negative); Phencyclidine Screen Urine Negative (Negative)
[2023-11-07 05:49] LABS: Basophils Percent Auto 0.5 % (0.2-1.2); Eosinophils Absolute Auto 0.1 K/mm3 (0-0.3); Eosinophils Percent Auto 1.6 % (0-4.4); Hematocrit 39.9 % (42.0-52.0); Hemoglobin 13.6 g/dL (14.0-18.0); Immature Granulocyte Absolute 0.02 K/mm3 (0.00-0.031); Immature Granulocyte Percent A 0.3 % (0-0.5); Lymphocytes Absolute Auto 2.31 K/mm3 (0.9-3.2); Lymphocytes Percent Auto 36.7 % (18.3-44.2); Mean Corpuscular HGB Conc 34.1 g/dl (32-36); Mean Corpuscular Hemoglobin 29.7 pg (26-34); Mean Corpuscular Volume 87.1 fl (80-100); Mean Platelet Volume 10.6 fl (7.4-10.4); Monocytes Absolute Auto 0.5 K/mm3 (0.1-0.6); Monocytes Percent Auto 7.8 % (2.6-8.5); Neutrophils Absolute Auto 3.3 K/mm3 (1.3-6.7); Neutrophils Percent Auto 53.1 % (45.5-73.1); Platelet Count Result 220 k/mm3 (150-375); Red Blood Count 4.58 M/mm3 (4.6-6.20); Red Cell Distribution Width 12.9 % (11.5-14.5); White Blood Count 6.3 K/mm3 (4.5-10.0)
[2023-11-07 06:04] LABS: Alanine Aminotransferase 39 U/L (6-50); Albumin Level 3.9 g/dL (3.5-5.1); Alkaline Phosphatase 92 U/L (38-126); Anion Gap 8 mmol/L (4-12); Aspartate Amino Transferase 32 U/L (17-59); Bilirubin,Total 0.2 mg/dL (0.2-1.3); Blood Urea Nitrogen 13 mg/dL (9-20); Calcium 8.2 mg/dL (8.4-10.2); Carbon Dioxide 26 mmol/L (22-30); Chloride 105 mmol/L (98-107); Estimated CRCL calculation 112 ml/min; Estimated Glomerular Filt Rate > 60; Glucose 99 mg/dL (65-110); Potassium 4.2 mmol/L (3.4-5.0); Sodium 139 mmol/L (137-145)
--- NOTE | 2023-11-07 08:19 | P.CONGI_ITS ---
I, Donald Andres MD, have provided a substantive portion of the care of this patient and discussed the patient with my Nurse Practitioner. I have reviewed any new relevant radiographic and laboratory results including medications. I agree with her documentation as noted below.?I personally performed the medical decision making and much of the history and exam for this encounter. briefly, he came here with pre syncope after working outside due to possible heat exhaustion. Work up no major findings, he has been having epigastric pain for almost 3 years, lately more frequent and after eating spicy meals. Never had EGD. CBC and liver enzymes normal, ct scan reviewed no major findings. Will proceed with EGD today. Assessment and Plan Assessment and plan (1) Epigastric pain: Code(s): R10.13 - Epigastric pain Status: Acute (2) GERD (gastroesophageal reflux disease): Qualifiers: Esophagitis presence: esophagitis presence not specified Qualified Code(s): K21.9 - Gastro-esophageal reflux disease without esophagitis Code(s): K21.9 - Gastro-esophageal reflux disease without esophagitis Status: Acute (3) RUQ pain: Code(s): R10.11 - Right upper quadrant pain Status: Acute (4) Gallbladder sludge: Code(s): K82.8 - Other specified diseases of gallbladder Status: Acute (5) Hepatic steatosis: Code(s): K76.0 - Fatty (change of) liver, not elsewhere classified Status: Acute Plan 1) Chronic epigastric pain /reflux: Patient has never had an EGD. Patient complains of chronic epigastric pain has been occurring for more than 3 years. He describes his pain as a burning sensation. This pain does not have a direct correlation with food intake but he does state that his reflux increases if he eats spicy foods. According to the patient his epigastric pain has become more problematic over the last year. He has been on omeprazole 20 mg b.i.d. x2 years with no change in symptoms. He denies any NSAID or aspirin use. Denies any nausea, vomiting, or hematemesis. Denies any nocturnal episodes of pain. Admits to epigastric pain with deep palpation. CT showed gallbladder sludge but no other findings to explain symptoms. LFTs and lipase normal. * We discussed that given the chronic nature of his symptoms that workup could be completed as outpatient but patient states that he would be unable to follow up with us. * Increase PPI to 40 mg b.i.d. * avoid known GERD triggering foods as these seem to exacerbate symptoms * EGD today 2) RUQ/ right flank pain/ gallbladder sludge: Imaging showed gallbladder sludge but no signs of biliary obstruction or dilation. . Patient states that yesterday during his abdominal ultrasound he was having right upper quadrant / flank pain. He he denies any prior episodes of right upper quadrant pain. He does state that is reflux symptoms seem to get worse if he eats fatty foods. * If EGD is unremarkable will consider HIDA scan to evaluate gallbladder function 3) Hepatic steatosis: Imaging showed hepatic steatosis. LFTs normal. * No need for additional workup at this time Thank you for allowing me to share in the care of this very nice patient. This report may have been done utilizing a voice recognition system. Attempts have been made to correct errors. However, there may be uncorrected grammatical, spelling, and recognition errors present. GI Consult Note Consult date/time: 11/07/23 08:19 Reason for consult: Epigastric pain HPI: This is a 43-year-old male with history of reflux but
--- NOTE | 2023-11-07 08:19 | WPDGICN ---
Assessment and Plan Assessment and plan (1) Epigastric pain: Code(s): R10.13 - Epigastric pain Status: Acute (2) GERD (gastroesophageal reflux disease): Qualifiers: Esophagitis presence: esophagitis presence not specified Qualified Code(s): K21.9 - Gastro-esophageal reflux disease without esophagitis Code(s): K21.9 - Gastro-esophageal reflux disease without esophagitis Status: Acute (3) RUQ pain: Code(s): R10.11 - Right upper quadrant pain Status: Acute (4) Gallbladder sludge: Code(s): K82.8 - Other specified diseases of gallbladder Status: Acute (5) Hepatic steatosis: Code(s): K76.0 - Fatty (change of) liver, not elsewhere classified Status: Acute Plan 1) Chronic epigastric pain /reflux: Patient has never had an EGD. Patient complains of chronic epigastric pain has been occurring for more than 3 years. He describes his pain as a burning sensation. This pain does not have a direct correlation with food intake but he does state that his reflux increases if he eats spicy foods. According to the patient his epigastric pain has become more problematic over the last year. He has been on omeprazole 20 mg b.i.d. x2 years with no change in symptoms. He denies any NSAID or aspirin use. Denies any nausea, vomiting, or hematemesis. Denies any nocturnal episodes of pain. Admits to epigastric pain with deep palpation. CT showed gallbladder sludge but no other findings to explain symptoms. LFTs and lipase normal. We discussed that given the chronic nature of his symptoms that workup could be completed as outpatient but patient states that he would be unable to follow up with us. Increase PPI to 40 mg b.i.d. avoid known GERD triggering foods as these seem to exacerbate symptoms EGD today 2) RUQ/ right flank pain/ gallbladder sludge: Imaging showed gallbladder sludge but no signs of biliary obstruction or dilation. . Patient states that yesterday during his abdominal ultrasound he was having right upper quadrant / flank pain. He he denies any prior episodes of right upper quadrant pain. He does state that is reflux symptoms seem to get worse if he eats fatty foods. If EGD is unremarkable will consider HIDA scan to evaluate gallbladder function 3) Hepatic steatosis: Imaging showed hepatic steatosis. LFTs normal. No need for additional workup at this time Thank you for allowing me to share in the care of this very nice patient. This report may have been done utilizing a voice recognition system. Attempts have been made to correct errors. However, there may be uncorrected grammatical, spelling, and recognition errors present. GI Consult Note Consult date/time: 11/07/23 08:19 Reason for consult: Epigastric pain HPI: This is a 43-year-old male with history of reflux but otherwise unremarkable medical surgical history. Patient was seen at the emergency room on 11/04 with complaints of dizziness and syncopal episode, at that time he was diagnosed with heat exhaustion and discharged home. The patient return again yesterday with same complaints and was admitted for syncopal episode. GI was consulted for chronic epigastric pain. Patient is only [place]i speaking so so retail pharmacy merchandiser service was used throughout the visit ([employer]oorva #[id number]). patient states that he is having burning epigastric pain that has been occurring for 3 years. This pain has no direct correlation with food intake but he does notice increased reflux symptoms if he consumes spicy foods. He states that this pain has been worse over the past year but has noticed no significant increase in frequency or severity over the past few weeks. Patient states that he had right upper quadrant/ flank pain that occurred during his abdominal ultrasound. He has been taking omeprazole 20 mg b.i.d. for 2 years but having persistent symptoms. He denies any nocturnal episodes of abdominal p
--- NOTE | 2023-11-07 09:41 | PM.IMPN ---
Progress Note: A&P Assessment and Plan (1) Syncope: Code(s): R55 - Syncope and collapse Status: Acute (2) GERD with esophagitis: Code(s): K21.00 - Gastro-esophageal reflux disease with esophagitis, without bleeding Status: Acute Plan (1) Syncope: Code(s): R55 - Syncope and collapse Status: Acute Assessment and Plan: ---head CT was performed on 11/05/2023 which was read as normal brain. The patient stated that he has had 2 syncopal episodes since then and is hit his head again. However refuses a repeat CT scan. --echo has been ordered for the syncopal episode. carotid Dopplers have been ordered as well Negative of orthostatic hypotension ----IV fluids (2) GERD with esophagitis: Code(s): K21.00 - Gastro-esophageal reflux disease with esophagitis, without bleeding Status: Acute Assessment and Plan: the patient stated that he has been having this problem for 3 years. I did ask him if he wanted to see GI so I put a GI consult through. Plans EGD today, Patient is on Protonix 40 mg b.i.d. p.o. Appreciate GI consultation Plan SCDs for DVT prophylaxis Subjective Date/time seen: 11/07/23 09:41 Interval history: I saw examined patient today in presents of patient's nurse, the conversation is interpreted with language interpreter Swati reference #[id number] Patient still has are abdomen pain, denies shortness breath, headache, nausea vomiting. Labs reviewed Exam Narrative: GENERAL: Pleasant, in no acute distress. Well-nourished. - EYES: EOMI. Anicteric. - HENT: Moist mucous membranes. - LUNGS: Clear to auscultation bilaterally, no wheezing, rhonchi, or rales. - CARDIOVASCULAR: Regular rate and rhythm. No murmur. No JVD. - ABDOMEN: Soft, upper tender and non-distended. No palpable masses. - EXTREMITIES: No edema. Peripheral pulses 2+. Non-tender. - NEUROLOGIC: No focal neurological deficits. CN II-XII grossly intact. - PSYCHIATRIC: Awake, Alert and oriented x 3. Appropriate mood and affect. - SKIN: No rashes or lesions. Warm. - LYMPH: No cervical lymphadenopathy. Objective Data Vital Signs Vital Signs: Vital Signs - 24 hr 11/06/23 15:58 11/06/23 16:31 11/06/23 18:14 Temperature 97.6 F Pulse Rate 80 79 70 Respiratory Rate 16 17 18 Blood Pressure 142/93 H 135/96 H 131/91 H Pulse Oximetry 98 95 95 Oxygen Delivery 11/06/23 21:59 11/06/23 22:44 11/06/23 22:30 Temperature 97.9 F Pulse Rate 72 71 Respiratory Rate 18 Blood Pressure 102/66 Pulse Oximetry 98 Oxygen Delivery Room Air 11/06/23 22:51 11/07/23 00:00 11/07/23 00:30 Temperature 97.2 F L Pulse Rate 66 74 68 Respiratory Rate 18 Blood Pressure 139/87 131/91 H Pulse Oximetry 96 Oxygen Delivery 11/07/23 00:32 11/07/23 00:34 11/07/23 04:00 Temperature Pulse Rate 64 70 78 Respiratory Rate Blood Pressure 129/95 H 134/97 H Pulse Oximetry Oxygen Delivery 11/07/23 06:00 Temperature 97.2 F L Pulse Rate 65 Respiratory Rate 18 Blood Pressure 130/87 Pulse Oximetry 97 Oxygen Delivery Intake/Output Intake/Output: Intake & Output 11/04/23 11/05/23 11/06/23 11/07/23 23:59 23:59 23:59 23:59 Intake Total 1000 Output Total 400 Balance 1000 -400 Meds/Results Medications: Active Medications Generic Name Dose Route Start Last Admin Trade Name Freq PRN Reason Stop Dose Admin Famotidine 20 mg 11/07/23 00:16 11/07/23 08:39 Famotidine 20 Mg/2 Ml Vial IV PUSH 20 mg Q12HR DON Administration Sodium Chloride 1,000 mls @ 100 mls/hr 11/06/23 23:50 11/07/23 00:17 Normal Saline Iv IV CONT 100 mls/hr .Q10H DON Administration Ondansetron HCl 4 mg 11/06/23 20:51 Ondansetron Inj 4 Mg/2 Ml Vial IV PUSH Q4H PRN Nausea Perflutren Lipid Microsphere 0 ml 11/06/23 23:47 Perflutren Lipid Microspheres 1.5 Ml Vial Diluted To 10 Ml Total Volume IV PUSH 11/09/23 23:47 ONCE PRN adequate vi
--- NOTE | 2023-11-07 15:40 | PC.NURSE ---
To GI Lab per wheelchair, IV saline locked. Report given to TRE Penn.
--- NOTE | 2023-11-07 16:02 | WPDANESEPPF ---
Anes - Initial Pre Proc Eval Procedure: Operation Date: 11/07/23 18:00 Proposed Procedures p Esophagogastroduodenoscopy - Donald Andres MD Date/Time: 11/07/23 16:02 Surgeon: Tong Abraham MD Pre Op Diagnosis: Syncope Patient Data Age: 43 Gender: M Height: 1.7 m Weight: 84.8 kg Last Vital Signs Temp 36.7 C 11/07/23 14:00 Pulse 65 11/07/23 14:28 Resp 16 11/07/23 14:28 BP 141/102 H 11/07/23 14:28 Pulse Ox 95 11/07/23 14:28 O2 Del Method Room Air 11/07/23 08:00 Allergies Allergy/AdvReac Type Severity Reaction Status Date / Time No Known Allergies Allergy Verified 11/06/23 22:45 Home Medications Medication Instructions Recorded Confirmed Type omeprazole 20 mg capsule,delayed 20 mg PO BID 11/06/23 11/06/23 History release Laboratory Tests 11/06/23 11/06/23 11/06/23 17:04 19:36 19:36 WBC 7.2 K/mm3 (4.5-10.0) RBC 4.90 M/mm3 (4.6-6.20) Hgb 14.7 g/dL (14.0-18.0) Hct 42.0 % (42.0-52.0) MCV 85.7 fl (80-100) MCH 30.0 pg (26-34) MCHC 35.0 g/dl (32-36) RDW 12.8 % (11.5-14.5) Plt Count 243 k/mm3 (150-375) MPV 11.3 H fl (7.4-10.4) Immature Gran % (Auto) 0.3 % (0-0.5) Neut % (Auto) 59.2 % (45.5-73.1) Lymph % (Auto) 30.6 % (18.3-44.2) Mckinley % (Auto) 8.8 H % (2.6-8.5) Eos % (Auto) 0.7 % (0-4.4) Baso % (Auto) 0.4 % (0.2-1.2) Lymph # (Auto) 2.20 K/mm3 (0.9-3.2) Mckinley # (Auto) 0.6 K/mm3 (0.1-0.6) Eos # (Auto) 0.1 K/mm3 (0-0.3) Baso # (Auto) 0.0 K/mm3 (0.0-0.1) Abs Immat Gran (auto) 0.02 K/mm3 (0.00-0.031) Absolute Neuts (auto) 4.3 K/mm3 (1.3-6.7) Absolute Nucleated RBC 0.000 K/mm3 (0.0-0.012) Nucleated RBC % 0.0 % (0.0-0.2) PT 12.8 Seconds (11.1-14.7) INR 0.9 APTT 28.1 Seconds (22.3-36.8) D-Dimer < 0.27 ug/mL (<0.48) Sodium 138 mmol/L (137-145) Potassium 3.7 mmol/L (3.4-5.0) Chloride 102 mmol/L (98-107) Carbon Dioxide 25 mmol/L (22-30) Anion Gap 11 mmol/L (4-12) BUN 13 D mg/dL (9-20) Creatinine 0.90 mg/dL (0.7-1.3) Estim Creat Clear Calc 101 ml/min Estimated GFR > 60 (59 - ) Glucose 97 mg/dL (65-110) Lactic Acid 1.2 mmol/L (0.7-2.0) Calcium 8.6 mg/dL (8.4-10.2) Magnesium 2.1 mg/dL Cancelled (1.6-2.3) Total Bilirubin 0.5 mg/dL (0.2-1.3) AST 37 U/L (17-59) ALT 46 U/L (6-50) Alkaline Phosphatase 88 U/L (38-126) Troponin I < 0.012 ng/mL (0.000-0.034) NT-Pro-B Natriuret Pep 49 pg/mL (19.9-100) Total Protein 8.0 g/dL (6.3-8.2) Albumin 4.5 g/dL (3.5-5.1) Lipase 79 U/L (23-300) Urine Opiates Screen Urine Methadone Screen Ur Barbiturates Screen Ur Phencyclidine Scrn Ur Amphetamine Screen U Benzodiazepines Scrn Urine Cocaine Screen U Cannabinoids Screen Influenza A (RT-PCR) Influenza B (RT-PCR) RSV (RT-PCR) SARS-CoV-2 RNA (RT-PCR) 11/06/23 11/06/23 11/07/23 19:36 19:40 00:23 WBC RBC Hgb Hct MCV MCH MCHC RDW Plt Count MPV Immature Gran % (Auto) Neut % (Auto) Lymph % (Auto) Mckinley % (Auto) Eos % (Auto) Baso % (Auto) Lymph # (Auto) Mckinley # (Auto) Eos # (Auto) Baso # (Auto) Abs Immat Gran (auto)
[2023-11-07] MEDS: LACTATED RINGERS 1,000 ML 150 ML IV CONT (16:15)
--- NOTE | 2023-11-07 17:44 | PC.NURSE ---
Returned from GI Lab.
[2023-11-07] MEDS: ONDANSETRON INJ 4 MG/2 ML VIAL IV PUSH (18:32)
[2023-11-08] VITALS (11 sets, daily range): BP systolic 122–147; BP diastolic 64–90; PULSE 44–78; RESP 16–22; TEMP 36–36.8; O2SAT 97–100
[2023-11-08] MEDS: SODIUM CHLORIDE 0.9% IV 1,000 ML 100 ML IV CONT ×3 (01:29→22:28)
[2023-11-08] MEDS: PANTOPRAZOLE 40 MG TABLET PO (09:11)
[2023-11-08] MEDS: FAMOTIDINE 20 MG/2 ML VIAL IV PUSH ×2 (09:11→20:25)
[2023-11-08] MEDS: ONDANSETRON INJ 4 MG/2 ML VIAL IV PUSH (09:34)
[2023-11-08] MEDS: ACETAMINOPHEN 500 MG TABLET 1000 MG PO (10:25)
--- NOTE | 2023-11-08 10:44 | WPDGIPROGNO ---
Progress Note: A&P Assessment and Plan (1) Epigastric pain: Code(s): R10.13 - Epigastric pain Status: Acute Assessment and Plan: egd unremarkable he can go home with ppi because of dyspepsia given GB sludge, he can complete hida scan as outpatient and then follow-up in office (2) GERD (gastroesophageal reflux disease): Qualifiers: Esophagitis presence: esophagitis presence not specified Qualified Code(s): K21.9 - Gastro-esophageal reflux disease without esophagitis Code(s): K21.9 - Gastro-esophageal reflux disease without esophagitis Status: Acute (3) Syncope: Code(s): R55 - Syncope and collapse Status: Acute (4) Gallbladder sludge: Code(s): K82.8 - Other specified diseases of gallbladder Status: Acute (5) Hepatic steatosis: Code(s): K76.0 - Fatty (change of) liver, not elsewhere classified Status: Acute Subjective Date/time seen: 11/08/23 10:44 Interval history: egd normal still having dyspepsia after eating Review of Systems Review of Systems: All systems reviewed & are unremarkable except as noted in HPI and below Exam Const: General: comfortable and no acute distress HENMT: Face/Nose/Sinus: Normal nares present Eyes: General: appearance normal, both eyes and all related structures Neck: Neck: supple Resp: Auscultation: clear to auscultation bilaterally Cardio: Rate: regular rate Rhythm: regular rhythm GI: Inspection: non-distended GI Palp: Yes Soft to palpation, Yes Tenderness to palpation present (GI) (mild ttp in epigastric, no rebound) and No Guarding due to palpation present (GI) Auscultation: normal bowel sounds Skin: General skin exam: normal color Neuro: General: gait normal Speech: normal speech Extrem: General: normal to inspection Psych: Mental Status: mental status grossly normal Objective Data Vital Signs Vital Signs: Vital Signs - 24 hr 11/07/23 14:00 11/07/23 14:28 11/07/23 14:28 Temperature 98.1 F Pulse Rate 70 70 69 Respiratory Rate 16 16 16 Blood Pressure 140/102 H 140/102 H 151/102 H Pulse Oximetry 97 97 97 Oxygen Delivery 11/07/23 14:28 11/07/23 16:13 11/07/23 12:00 Temperature 97.2 F L Pulse Rate 65 72 68 Respiratory Rate 16 20 Blood Pressure 141/102 H 159/91 H Pulse Oximetry 95 98 Oxygen Delivery Room Air 11/07/23 17:10 11/07/23 17:20 11/07/23 17:30 Temperature Pulse Rate 64 61 64 Respiratory Rate 15 14 18 Blood Pressure 93/60 L 111/59 L 105/73 Pulse Oximetry 97 97 96 Oxygen Delivery Room Air Room Air Room Air 11/07/23 20:00 11/07/23 20:00 11/07/23 20:00 Temperature 98.5 F Pulse Rate 71 72 Respiratory Rate 20 Blood Pressure 138/94 H Pulse Oximetry 99 Oxygen Delivery Room Air 11/07/23 21:08 11/08/23 00:00 11/08/23 04:00 Temperature 98.5 F Pulse Rate 64 63 55 L Respiratory Rate 20 Blood Pressure 126/81 Pulse Oximetry 98 Oxygen Delivery 11/08/23 06:00 Temperature 96.8 F L Pulse Rate 44 L Respiratory Rate 20 Blood Pressure 122/64 Pulse Oximetry 97 Oxygen Delivery Intake/Output Intake/Output: Intake & Output 11/05/23 11/06/23 11/07/23 11/08/23 23:59 23:59 23:59 23:59 Intake Total 1000 1440 1240 Output Total 400 Balance 1000 1040 1240 Meds/Results Medications: Active Medications Generic Name Dose Route Start Last Admin Trade Name Freq PRN Reason Stop Dose Admin Acetaminophen 1,000 mg 11/08/23 09:38 11/08/23 10:25 Acetaminophen 500 Mg Tablet PO 1,000 mg Q6H PRN Administration Mild Pain (1-3) or Fever Famotidine 20 mg 11/07/23 00:16 11/08/23 09:11 Famotidine 20 Mg/2 Ml Vial IV PUSH 20 mg Q12HR DON Administration Sodium Chloride 1,000 mls @ 100 mls/hr 11/06/23 23:50 11/08/23 07:20 Normal Saline Iv IV CONT Not Given .Q10H DON Ondansetron HCl 4 mg 11/06/23 20:51 11/08/23 09:34 Ondansetron Inj 4 Mg/2 Ml Vial IV PUSH 4 mg Q4H
--- NOTE | 2023-11-08 13:04 | PM.IMPN ---
Progress Note: A&P Assessment and Plan (1) Syncope: Code(s): R55 - Syncope and collapse Status: Acute Assessment and Plan: Workup was negative. Patient will be referred to Cardiology and Neurology upon discharge (2) GERD with esophagitis: Code(s): K21.00 - Gastro-esophageal reflux disease with esophagitis, without bleeding Status: Acute Assessment and Plan: He recently today Plan 11/08/2023 Work up negative so far, will monitor closely. EGD mian for today. Possible dc in am. (1) Syncope: Code(s): R55 - Syncope and collapse Status: Acute Assessment and Plan: ---head CT was performed on 11/05/2023 which was read as normal brain. The patient stated that he has had 2 syncopal episodes since then and is hit his head again. However refuses a repeat CT scan. --echo has been ordered for the syncopal episode. carotid Dopplers have been ordered as well Negative of orthostatic hypotension ----IV fluids (2) GERD with esophagitis: Code(s): K21.00 - Gastro-esophageal reflux disease with esophagitis, without bleeding Status: Acute Assessment and Plan: the patient stated that he has been having this problem for 3 years. I did ask him if he wanted to see GI so I put a GI consult through. Plans EGD today, Patient is on Protonix 40 mg b.i.d. p.o. Appreciate GI consultation Plan SCDs for DVT prophylaxis Subjective Date/time seen: 11/08/23 13:04 Interval history: Patient was seen during morning rounds today. Patient is feeling better. No shortness of breath or chest pain. No abdominal pain, no nausea no vomiting. Mood stable. Review of Systems Review of Systems: All systems reviewed & are unremarkable except as noted in HPI and below Constitutional: Constitutional: Reports as per HPI and Reports no additional constitutional complaints Eyes: Eyes: Reports as per HPI and Reports no additional eye complaints ENT: Reports system reviewed and no additional complaints, except as documented and Reports Normal hearing present Cardiovascular: Cardiovascular: Reports no additional cardiovascular complaints Respiratory: Respiratory: Reports as per HPI and Reports no additional respiratory complaints Gastrointestinal: Gastrointestinal: Reports as per HPI and Reports no additional gastrointestinal complaints Musculoskeletal: Musculoskeletal: Reports no additional musculoskeletal complaints Integumentary/Breasts: Skin/Breast: Reports system reviewed and no additional complaints, except as docu Neurologic: Reports system reviewed and no additional complaints, except as documented and Reports Normal hearing present Psychiatric: Psychiatric: Reports no additional psychiatric complaints and Reports as per HPI Endocrine: Endocrine: Reports no additional endocrine complaints Hematologic/Lymphatic: Hematologic/Lymphatic: Reports no additional hematologic/lymphatic complaints Allergic/Immunologic: Allergic/Immunologic: Reports no additional allergic/immunologic complaints Exam Narrative: GENERAL: Pleasant, in no acute distress. Well-nourished. - EYES: EOMI. Anicteric. - HENT: Moist mucous membranes. - LUNGS: Clear to auscultation bilaterally, no wheezing, rhonchi, or rales. - CARDIOVASCULAR: Regular rate and rhythm. No murmur. No JVD. - ABDOMEN: Soft, upper tender and non-distended. No palpable masses. - EXTREMITIES: No edema. Peripheral pulses 2+. Non-tender. - NEUROLOGIC: No focal neurological deficits. CN II-XII grossly intact. - PSYCHIATRIC: Awake, Alert and oriented x 3. Appropriate mood and affect. - SKIN: No rashes or lesions. Warm. - LYMPH: No cervical lymphadenopathy. Const: General: cooperative, healthy appearing, comfortable, no acute distress, well developed, awake, Physically active, average body habitus and well nourished Nutritional Appearance: average body habitus and well nourished Orientation/consciousness: oriented to perso
[2023-11-08] MEDS: MECLIZINE HCL 12.5 MG TABLET PO ×2 (16:10→22:29)
--- NOTE | 2023-11-08 19:57 | WPDANESPN ---
Anes - Prog Note Post-Op Date/Time: 11/08/23 19:57 Cardiovascular status: normal Respiratory status: normal Airway patency: baseline Mental status: baseline Post-Op hydration status: normal Vital Signs: Last Vital Signs Temp 36.5 C 11/08/23 13:07 Pulse 70 11/08/23 16:00 Resp 16 11/08/23 13:07 BP 130/87 11/08/23 13:17 Pulse Ox 100 11/08/23 13:07 O2 Del Method Room Air 11/08/23 08:00 Pain Score (VAS): patient complaining of nausea and pain not related to EGD I/O: Intake & Output 11/08/23 11/08/23 11/08/23 07:59 15:59 23:59 Intake Total 1240 1240 520 Balance 1240 1240 520 Laboratory Tests 11/07/23 05:42 11/07/23 05:42 Post-procedural complaints: none Patient Feedback: Patient satisfied with anesthetic care.
[2023-11-09] VITALS: PULSE 62
[2023-11-09 04:00] VITALS: PULSE 51
[2023-11-09 06:00] VITALS: BP 122/84; PULSE 59; RESP 22; TEMP 36.7; O2SAT 96
[2023-11-09 08:00] VITALS: PULSE 64
[2023-11-09] MEDS: FAMOTIDINE 20 MG/2 ML VIAL IV PUSH (08:27)
[2023-11-09] MEDS: PANTOPRAZOLE 40 MG TABLET PO (08:27)
[2023-11-09] MEDS: MECLIZINE HCL 12.5 MG TABLET PO (08:31)
[2023-11-09] MEDS: SODIUM CHLORIDE 0.9% IV 1,000 ML 100 ML IV CONT (08:31)
--- NOTE | 2023-11-09 08:32 | PM.DS ---
DS: Admitting Diagnosis Discharge Date 11/09/2023 Admitting Diagnosis Syncope DS: Discharge Diagnosis Discharge Diagnosis (1) Syncope: Code(s): R55 - Syncope and collapse Status: Acute Assessment and Plan: Workup was negative. Patient will be referred to Cardiology and Neurology upon discharge (2) GERD with esophagitis: Code(s): K21.00 - Gastro-esophageal reflux disease with esophagitis, without bleeding Status: Acute Assessment and Plan: He recently today Plan 11/08/2023 Work up negative so far, will monitor closely. EGD mian for today. Possible dc in am. (1) Syncope: Code(s): R55 - Syncope and collapse Status: Acute Assessment and Plan: ---head CT was performed on 11/05/2023 which was read as normal brain. The patient stated that he has had 2 syncopal episodes since then and is hit his head again. However refuses a repeat CT scan. --echo has been ordered for the syncopal episode. carotid Dopplers have been ordered as well Negative of orthostatic hypotension ----IV fluids (2) GERD with esophagitis: Code(s): K21.00 - Gastro-esophageal reflux disease with esophagitis, without bleeding Status: Acute Assessment and Plan: the patient stated that he has been having this problem for 3 years. I did ask him if he wanted to see GI so I put a GI consult through. Plans EGD today, Patient is on Protonix 40 mg b.i.d. p.o. Appreciate GI consultation Plan SCDs for DVT prophylaxis DS: Summary Hospital Course Reason for hospitalization: Syncope Hospital Course: 43yearsold male was admitted for a possible syncopal episode. Workup in the hospital was negative. Patient also had gastritis. Today patient is feeling better and was discharged in stable condition. 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 Full with GI also scheduled. Status at Discharge Cognitive/behavioral status at discharge: Stable. Time Spent with Patient Time attestation: Total time spent providing and/or coordinating discharge services: 30 minutes Exam Narrative: GENERAL: Pleasant, in no acute distress. Well-nourished. - EYES: EOMI. Anicteric. - HENT: Moist mucous membranes. - LUNGS: Clear to auscultation bilaterally, no wheezing, rhonchi, or rales. - CARDIOVASCULAR: Regular rate and rhythm. No murmur. No JVD. - ABDOMEN: Soft, upper tender and non-distended. No palpable masses. - EXTREMITIES: No edema. Peripheral pulses 2+. Non-tender. - NEUROLOGIC: No focal neurological deficits. CN II-XII grossly intact. - PSYCHIATRIC: Awake, Alert and oriented x 3. Appropriate mood and affect. - SKIN: No rashes or lesions. Warm. - LYMPH: No cervical lymphadenopathy. Const: General: cooperative, healthy appearing, comfortable, no acute distress, well developed, awake, Physically active, average body habitus and well nourished Nutritional Appearance: average body habitus and well nourished Orientation/consciousness: oriented to person, oriented to place, oriented to time and patient oriented x3 Limitations: no limitations HENMT: Head: normal to inspection, No palpable skull fracture present, normocephalic, atraumatic and abrasion Ears: hearing grossly normal bilaterally, external ears normal and TM's normal bilaterally Face/Nose/Sinus: Normal external nose present, Normal nares present and No nasal polyps present Mouth: Yes Normal oral and palatal mucosa present Throat: posterior oropharynx normal Eyes: General: appearance normal, both eyes and all related structures Alignment and Position: alignment normal Periorbital: periorbital findings normal Eyelids: eyelids normal Conjunctivae: conjunctivae normal Sclera: sclerae normal Cornea: corneas normal Pupils: Equal, round and reactive pupils present and Pupil accommodation reflex normal EOM: EOMs intact bilaterally Neck: Neck: normal visual inspection, full ROM, no lymphadeno
== END 2023-11-09 10:00 | disposition home or self-care (01) ==
LOC: ANHED 16:36 → ANH3MED 22:01
PROVIDERS: Internal Medicine Gastroenterology; Nurse Practitioner; Admitting Provider Internal Medicine; Emergency Provider Registered Nurse; Visit Provider Internal Medicine
PROC: 0DJ08ZZ Inspection of Upper Intestinal Tract, Via Natural or Artificial Opening Endoscopic (ICD-10-PCS; CPT 43235; principal; 2023-11-07 18:00)
DX: K21.9 Gastro-esophageal reflux disease without esophagitis (principal); R55 Syncope and collapse; K29.80 Duodenitis without bleeding; K29.50 Unspecified chronic gastritis without bleeding; K82.8 Other specified diseases of gallbladder; K76.0 Fatty (change of) liver, not elsewhere classified; I65.23 Occlusion and stenosis of bilateral carotid arteries; Z20.822 Contact with and (suspected) exposure to COVID-19
CPT/HCPCS: 43239; 36415; 71046; 74177; 76705; 80053; 80307; 83605; 83690; 83735; 83880; 84484; 85025; 85380; 85610; 85730; 87637; 88305; 88342; 93005; 93306; 93880; 96361; 96374; 99285; A9270; G0378; J1885; J2405; J7030; J7120; Q9967

== ENCOUNTER 2024-09-24 18:16 | Emergency (ER) | payer SELFPAY ==
--- NOTE | ~2024-09-24 | CT_ITS ---
EXAMINATION: CT cervical spine wo con DATE: 09/24/2024 22:07 INDICATION: neck pain TECHNIQUE: Computed tomography (CT) of the cervical spine was performed without intravenous contrast. Automated exposure control and iterative reconstruction technique were employed. The dose-length pro duct was 560.43 mGy-cm. COMPARISON: None. FINDINGS: Vertebral Body Alignment: Intact. Craniocervical and atlantoaxial alignment: Mild degenerative change. Alignment intact. Osseous structures/fracture: No evidence of a lytic or blastic process in the visualized spine. No e vidence of acute fracture. Cervical soft tissues: The paraspinal soft tissues planes are maintained. Degenerative changes: Mild multilevel degenerative disc disease. Mild multilevel uncovertebral joint hypertrophy. Multilevel facet arthropathy, most pronounced on the right at C7-T1. No severe central c anal or neural foraminal narrowing. IMPRESSION: No acute fracture or traumatic malalignment in the cervical spine. Reviewed, dictated and finalized at location K.
--- NOTE | ~2024-09-24 | CT_ITS ---
EXAMINATION: CT brain wo con DATE: 09/24/2024 22:06 INDICATION: R sided MARTINS . TECHNIQUE: Computed tomography (CT) of the head was performed without intravenous contrast. The mA wa s adjusted according to patient size. Iterative reconstruction technique was employed. The dose-lengt h product was 681.00 mGy-cm. COMPARISON: 11/05/2023. FINDINGS: No acute intracranial hemorrhage or extra-axial fluid collection. No hydrocephalus, mass, or herniation. No acute ischemic infarct. Unremarkable dural venous sinus attenuation. No acute osseous abnormality. Retention cyst/polyp in the left maxillary sinus, the remaining aerated spaces are clear. IMPRESSION: No acute intracranial process. Reviewed, dictated and finalized at location K.
--- NOTE | ~2024-09-24 | CT_ITS ---
EXAMINATION: CT lumbar spine wo con DATE: 09/24/2024 22:07 INDICATION: lower back pain . TECHNIQUE: Computed tomography (CT) of the lumbar spine was performed intravenous contrast. Automated exposure control and iterative reconstruction technique were employed. The dose-length product was 1 629.06 mGy-cm. COMPARISON: 11/05/2023. FINDINGS: 5 nonrib-bearing lumbar-type vertebral bodies. Pedicles intact. Normal vertebral body align ment. Vertebral body heights preserved. Mild degenerative disc disease at L2-3 and L4-5. Moderate fac et arthropathy at L4-5 and L5-S1. Right SI joint fusion. IMPRESSION: No acute fracture or traumatic malalignment in the lumbar spine. No severe central canal or neural fo raminal narrowing. Reviewed, dictated and finalized at location K. IMPRESSION: No acute fracture or traumatic malalignment in the lumbar spine. No severe cent ral canal or neural foraminal narrowing.
--- OUTSIDE RECORDS SUMMARY | 2024-09-24 18:18 | XMS_ITS | Referral Summary ---
Author Organization [facility] Address [address] [place] [address] Care Team Providers Care Toys [employer] Games Hand Finisher Name Role Phone No, Physician Primary Care Provider [phone] Allergies No known active allergies Medications ondansetron ODT (ZOFRAN-ODT) 4 mg disintegrating tablet Take 1 tablet (4 mg total) by mouth every 8 (eight) hours as needed for nausea or vomiting 20 tablet 4 Active dicyclomine (BENTYL) 20 mg tablet Take 1 tablet (20 mg total) by mouth 2 (two) times a day 20 tablet 4 Active famotidine (PEPCID) 20 mg tablet Take 1 tablet (20 mg total) by mouth 2 (two) times a day 30 tablet 4 Active sucralfate (CARAFATE) suspension 1 gram/10 mL Take 10 mL (1 g total) by mouth 4 (four) times a day (with meals and nightly) 473 mL 4 Active bacitracin 500 unit/gram ointment Apply topically 2 (two) times a day 120 g 4 Active dicyclomine (BENTYL) 20 mg tabletIndications: Abdominal pain,Diarrhea, unspecified type,Epigastric pain Take 1 tablet (20 mg total) by mouth 2 (two) times a day as needed (For abdominal pain) 30 tablet 4 Active losartan (COZAAR) 50 mg tablet Take 1 tablet (50 mg total) by mouth daily Active Active Problems Problem Noted Date Diagnosed Date Abdominal pain 02/12/2024 Assessment & Plan (02/12/2024 11:08 AM PRESS READER): The patient presents with chronic lower abdominal pain related to bowel habits with diarrhea predominance in the setting of urinary symptoms/microscopic hematuria (he will be seeing Urology). He is here for another opinion as he was recently seeing another local GI/Dr. Real. We will plan for a colonoscopy as a next step in evaluation. I have explained the technique, benefits, alternatives, and the risks to the patient, including bleeding, perforation, infection, missed lesions, as well as the adverse effects possible with sedation. The patient is aware and informed of these risks as well as javy-procedural instructions and is willing to proceed. We will check labs and stool studies. I will prescribe Bentyl twice daily as needed in the meantime. Diarrhea 02/12/2024 Epigastric pain 02/12/2024 Social History Tobacco Use Types Packs/Day Years Used Date Smoking Tobacco: Never Smokeless Tobacco: Never Tobacco Cessation:Counseling Given: Not Answered AUDIT-C Answer Date Recorded Q1: How often do you have a drink containing alc ohol? Never 02/24/2024 Average Number of Drinks Not on file 024 Q3: How often do you have si x or more drinks on one occasion? Never 02/24/2024 Personal Safety Answer Date Recorded Have you ever been in or are you currently in a harmful physical or emotional relationship or is someone making you feel afraid or unsafe? Denies 02/24/2024 Sex and Gender Information Value Date Recorded Sex Assigned at Not on file Legal Sex Male 3:33 PM CDT Gender Identity Not on file Sexual Orientation Not on file Last Filed Vital Signs Vital Sign Reading Time Taken Comments Blood Pressure 133/98 02/24/2024 11:00 AM PRESS READER Pulse 67 02/24/2024 11:00 AM PRESS READER Temperature 36.4 C (97.6 F) 02/24/2024 10:32 AM PRESS READER Respiratory Rate 16 02/24/2024 11:00 AM PRESS READER Oxygen Saturation 97% 02/24/2024 11:00 AM PRESS READER Inhaled Oxygen Concentration - - Weight 85.7 kg (189 lb) 02/24/2024 9:20 AM PRESS READER Height 170.2 cm (5' 7) 02/12/2024 10:24 AM PRESS READER Body Mass Index 29.6 02/12/2024 10:24 AM PRESS READER Plan of Treatment Not on file Procedures Procedure Name Priority Date/Time Associated Diagnosis Comments COLONOSCOPY 02/24/2024 10:15 AM PRESS READER from Last 3 Months or Most Recently Relevant to Health Maintenance Results * Colonoscopy (02/24/2024 10:15 AM PRESS READER) Anatomical Region Laterality Modality Other Narrative Procedure Note Rick Ribera MD - 02/24/2024 10:15 AM CST [facility] GI ENDOSCOPY Patient Name: Onur Guillermo Procedure Date: 02/24/2024 10:15AM Date of : 1980 Admit Type: Outpatient Age: 44 Gender: Male Attending MD: Rick Ribera MD Room: [facility] ENDOSCOPY ROOM 04 Note Status: Finalized Procedure: Colonoscopy Indications: chronic lower abdominal pain related to bowelhabits with a diarrhea predominance, average risk Referring MD: José Miguel Barakat M.D. Providers: Rick Ribera MD Medicines: See the Anesthesia note for documentation of the administered medications Complications: No immediate complications. Estimated Blood Loss: Estimated blood loss was minimal. Procedure: Pre-Anesthesia Assessment: - Prior to the procedure, a History and Physicalwas performed, and patient medications and allergieswere reviewed. The risks and benefits of the procedureand the sedation options and risks were discussed withthe patient. All questions were answered and informed consent was obtained. Patient identification and proposed procedure were verified. After reviewingthe risks and benefits, the patient was deemed in satisfactory condition to undergo the procedure.The anesthesia plan was to use monitored anesthesiacare (MAC). Immediately prior to administration of medications, the patient was re-assessed foradequacy to receive sedatives. The heart rate, respiratory rate, oxygen saturations, blood pressure, adequacyof pulmonary ventilation, and response to care were monitored throughout the procedure. The physical status of the patient was re-assessed after the procedure. The benefits, risks and alternatives of theprocedure and sedation were discussed and informed consentwas obtained. All questions were answered. Please referto the signed informed consent document in the medical record. The scope was passed under direct vision.The [id number] colonoscope was introduced through theanus and advanced to the terminal ileum, with identification of the appendiceal orifice and IC valve. The colonoscopy was performed without difficulty. The patient tolerated the procedurewell. The quality of the bowel preparation was adequate. Scope insertion time was 3 minutes. Scopewithdrawal time was 13 minutes. Prep was administered in asplit dose. Findings: The perianal and digital rectal examinations were normal. The visualized terminal ileum appeared normal. Colonic mucosa normal. Random whole colon biopsies for histology were taken with a cold forceps for evaluation of microscopic colitis. Hemorrhoids were found. The hemorrhoids were small. Fair prep. Impression: - The examined portion of the terminal ileum was normal. - Colonic mucosa normal. Biopsied. - Hemorrhoids. Recommendation: - Await pathology results. - Resume previous diet today. - Discharge patient to home. - Patient has a contact number available for emergencies. The signs and symptoms of potential delayed complications were discussed with thepatient. Return to normal activities tomorrow. Written discharge instructions were provided to thepatient. - I would be happy to see you in my GI clinic ifyou have further questions or concerns or if symptoms progress - Repeat colonoscopy in 3 years for screeningpurposes with extended prep. Rick Ribera MD 02/24/2024 10:36:57 AM Number of Addenda: 0 Note Initiated On: 02/24/2024 10:15 AM Recognized by the [employer] for promoting quality in endoscopy Rick Ribera MD ENDOSCOPY PROCEDURES Niya l Result from Last 3 Months or Most Recently Relevant to Health Maintenance Care Teams Toys And Games Hand Finisher Relationship Specialty Start Date End Date No, Physician PCP - General 11/12/23
--- OUTSIDE RECORDS SUMMARY | 2024-09-24 18:18 | XMS_ITS | Clinical Summary ---
Author Organization [facility] Address [address] [place] [address] Care Team Providers Care Supervisor Lump Room Name Role Phone No, Physician Primary Care Provider [phone] Allergies No known active allergies Medications ondansetron [...] 02/12/2024 Assessment & Plan (02/12/2024 11:08 AM PRINTER SLOTTER HELPER): The patient presents with chronic lower abdominal [...] on file Sexual Orientation Not on file Obstetrics History Last Filed Vital Signs Vital Sign Reading Time Taken Comments Blood Pressure 133/98 02/24/2024 11:00 AM PRINTER SLOTTER HELPER Pulse 67 02/24/2024 11:00 AM PRINTER SLOTTER HELPER Temperature 36.4 C (97.6 F) 02/24/2024 10:32 AM PRINTER SLOTTER HELPER Respiratory Rate 16 02/24/2024 11:00 AM PRINTER SLOTTER HELPER Oxygen Saturation 97% 02/24/2024 11:00 AM PRINTER SLOTTER HELPER Inhaled Oxygen Concentration - - Weight 85.7 kg (189 lb) 02/24/2024 9:20 AM PRINTER SLOTTER HELPER Height 170.2 cm (5' 7) 02/12/2024 10:24 AM PRINTER SLOTTER HELPER Body Mass Index 29.6 02/12/2024 10:24 AM PRINTER SLOTTER HELPER Plan of Treatment Health Maintenance Due Date Last Done Comments Depression Screening 1980 Hepatitis C Screening 1980 Varicella Vaccines (1 of 2 - 13+ 2-dose series) 1995 Hepatitis B Screening 01/02/2000 Regular Well Visit/Exam 18-64 01/02/2000 Covid-19 Vaccine (3 - 2023-2 5 season) 2023 09/22/2020, 09/01/2020 Influenza Vaccine (Season Ended) 2024 Colon Cancer Screening-Colonoscopy 02/23/2027 02/24/2024 DTaP/Tdap/Td Vaccine (2 - Td or Tdap) 09/21/2029 09/22/2019 HPV Vaccines Aged Out No longer eligi ble based on patient's age to complete this topic Pneumococcal vaccine <65 Aged Out No longer eligible based on patient's age to complete this topic Procedures Procedure Name Priority Date/Time Associated Diagnosis Comments COLONOSCOPY 02/24/2024 10:15 AM PRINTER SLOTTER HELPER from Last 3 Months or Most Recently Relevant to Health Maintenance Results * Colonoscopy (02/24/2024 10:15 AM PRINTER SLOTTER HELPER) Anatomical Region Laterality Modality Other Narrative Procedure Note Rick Ribera MD - 02/24/2024 10:15 AM CST [facility] GI ENDOSCOPY Patient Name: Onur Guillermo Procedure Date: 02/24/2024 10:15AM Date of : 1980 Admit Type: Outpatient Age: 44 Gender: Male Attending MD: Rick Ribera MD Room: [facility] ENDOSCOPY ROOM 04 Note Status: Finalized Procedure: [...] The scope was passed under direct vision.The [id number] colonoscope was introduced through theanus and advanced [...] On: 02/24/2024 10:15 AM Recognized by the [employer] for promoting quality in endoscopy us Rick Ribera MD ENDOSCOPY PROCEDURES Niya l Result from Last 3 Months or Most Recently Relevant to Health Maintenance Care Teams Supervisor Lump Room Relationship Specialty Start Date End Date No, Physician PCP - General 11/12/23
--- OUTSIDE RECORDS SUMMARY | 2024-09-24 18:18 | XMS_ITS | Clinical Summary ---
Author Organization [facility] Address [address] [place] [address] Care Team Providers Care Qc Lab Technician Name Role Phone Unavailable Primary Care Provider Unavailabl e Immunizations Immunization Administration Dates Next Due Covid-19, Mrna, Lnp-s, Pf, 30 Mcg/0.3 Ml Dose (P fizer) 09/22/2020,09/01/2020 Social History Tobacco Use Types Packs/Day Years Used Date Smoking Tobacco: Never Assessed Sex and Gender Information Value Date Recorded Sex Assigned at Not on file Legal Sex Male 5:28 PM CDT Gender Identity Not on file Sexual Orientation Not on file Plan of Treatment Health Maintenance Due Date Last Done Comments Hepatitis C Virus (HCV) Screening 1980 Hepatitis B Immunization (1 of 3 - 19+ 3-dose series) 2001 Influenza Immunization (#1) 2023 SARS-COV-2 Immunization ( season) 2023 09/22/2020, 09/01/2020 Respiratory Syncytial Virus (RSV) Immunization (Adult) (1 - 1-dose 75+ series) 2057 DTaP/Tdap/Td Immunization Discontinued 09/22/2019 TdaP Immunization Completed 09/22/2019 Meningococcal Immunization (ACWY) Aged Out No longer eligible based on patient's age to complete this topic Pneumococcal Immunization Combined Aged Out No longer eligible based on patient's age to complete this topic Rotavirus Immunization Aged Out No lo nger eligible based on patient's age to complete this topic
--- OUTSIDE RECORDS SUMMARY | 2024-09-24 18:18 | XMS_ITS | Clinical Summary ---
Author Organization [facility] Address [facility] [place] [address] Care Team Providers Care [employer] Certified Network Associate Name Role Phone Unavailable Primary Care Provider Unavailabl e Social History Tobacco Use Types Packs/Day Years Used Date Smoking Tobacco: Never Assessed Sex and Gender Information Value Date Recorded Sex Assigned at Not on file Legal Sex Male 1:25 PM CDT Gender Identity Not on file Sexual Orientation Not on file Plan of Treatment Upcoming Encounters Date Type Department Care Team (Late st Contact Info) Description 01/13/2025 8:00 AM FORMULA WEIGHER Office Visit [facility] - [address] [place] [address] Zach Black MD [address] [place] [id number] 03/17/2025 2:00 PM FORMULA WEIGHER Office Visit [facility] - [address], [address] [place] [address] Jigar Bourne MD [address] [place] [id number] Health Maintenance Due Date Last Done Comments Annual Physical 1985 Hepatitis C 01/02/2000 DTaP, Tdap and Td Vaccines ( 1 - Tdap) 2001 Hepatitis B Vaccines (1 of 3 - 19+ 3-dose series) 2001 COVID-19 Vaccine (2023-2 5 season) 2023 HPV Vaccines Aged Out No longer eligi ble based on patient's age to complete this topic Meningococcal B Vaccine Aged Out No l onger eligible based on patient's age to complete this topic Meningococcal Vaccine Aged Out No ligia jasmin eligible based on patient's age to complete this topic Pneumococcal Vaccine: Pediat rics (0 to 5 Years) and At-Risk Patients (6 to 49 Years) Aged Out No longer eligible b ased on patient's age to complete this topic RSV Immunizations Under 20 Months Aged Out No longer eligible based on patient's age to complete this topic
--- OUTSIDE RECORDS SUMMARY | 2024-09-24 18:19 | XMS_ITS | Data Portability ---
Author Organization [place] [facility] Address [address] [facility] [place] [address] Care Team Providers Care Manager Epic Name Role Phone ARNULFO TSAI Primary Care Provider Assessment No assessment recorded. Plan of Treatment Reminders Order Date Submit Date Provider Last Modified By Organization Details Last Modified Time Details Appointments None recorded. Lab H pylori urea breath test, co2 infrared 2023 024 RAFAL NORIEGA, [facility], [facility] [address], [place], [address], 4 16:13:15 CMP, serum or plasma 2023 024 RAFAL NORIEGA, [address] [place] [address], [facility] [address], [place], [address], 4 16:13:16 urinalysis complete, reflex culture 2023 024 RAFAL NORIEGA, [address] [place] [address], [facility] [address], [place], [address], 4 06:19:30 H pylori urea breath test, co2 infrared 2023 024 RAFAL NORIEGA, [facility] [address], [address], [place], [address], 4 06:19:27 lipid panel, serum 2023 024 RAFAL NORIEGA, [facility], [address], [place], [address], 4 06:19:29 HbA1c (hemoglobi n A1c), blood 2023 024 RAFAL NORIEGA, [address], [address], [place], [address], 4 00:07:28 RPR (rapid plasma reagin), serum 2023 RAFAL TAYLORRP, [facility], [address], [place], [address], 4 06:19:34 HIV 1 + 2, meaningful use set 2023 RAFAL NORIEGA, [facility], [address], [place], [address], 4 06:19:35 hepatitis panel (A+B+C), acute, serum 2023 RAFAL NORIEGA, [place] [facility], [address], [place], [address], 4 06:19:25 chlamydia trachomati s + neisseria gonorrhoea e + trichomona s vaginalis rRNA panel, JOHNNY+probe 2023 024 RAFAL NORIEGA, [facility], [address], [place], [address], 4 06:19:28 iron + total iron-naa ng capacity (TIBC), serum 2023 024 RAFAL NORIEGA, [address], [address], [place], [address], 4 06:19:31 CBC w/ auto diff 2023 024 RAFAL TAYLORRP, Tanika [address], [address], [place], [address], 4 06:19:32 H pylori Ag, qual immunoassa y, stool 2019 020 harjeet [facility], [address] [facility] [address], [address], [place], [address], 0 16:16:51 HbA1c (hemoglobi n A1c), blood 2019 020 RAFAL In-Office Order, Internal Use Only DO Not Attach Compendium DO Not Attach Compendium, Do Not Delete/merge, [id number] 0 16:27:41 CBC w/ auto diff 2019 020 RAFAL TAYLORRP, [facility] [address], [address], [place], [address], 0 09:14:43 CMP, serum or plasma 2019 020 RAFAL TAYLORRP, Tanika [address], [address], [place], [address], 0 09:14:44 TSH, ultra-sens itive, serum 2019 020 RAFAL CORNEJOCORP, [facility] [address], [address], [place], [address], 0 09:14:45 urinalysis , complete 2019 020 RAFAL TAYLORRP, [facility] [address], [address], [place], [address], 0 09:14:44 Referral neurologis t referral - pt is self pay. Please find a place with financial assistance . 2024 025 NADYA Chaudhary MD, [address], [place], [address], 5 09:10:32 orthopedic spine surgeon referral 2024 025 [email or web address] 1 Isacc Topete MD, [address] [place] [address], [address], [place], [address], 5 12:40:27 physical therapist referral 2023 024 [facility], [address], [address], [place], [address], 10:56:50 physical therapist referral - Needs PT for chronic back pain and needs PT for vertigo 2023 [facility], [address], [address], [place], [address], 5 10:58:[address] referral 2023 abelardo Sweet MD, [address] [facility], [address], [place], [address], 5 10:58:39 general surgeon referral - Pt has umbilical and inguinal hernia based on ER report. 2023 024 abelardo Wilkins MD, [address] , [place], [address], 10:58:39 Procedures None recorded. Surgeries None recorded. Imaging MRI, lumbar spine, w/o contrast - self pay and montserratian speaking. Please work with him on payment plan 2024 025 [facility], [address], [place], [address], 5 21:51:21 MRI, brain, w/o contrast - montserratian speaking and self pay 2024 025 [facility], [address], [place], [address], 5 21:47:41 XR, lumbosacra l spine, 2 or 3 view 2023 024 [facility] [address], [place], [address], 4 11:40:39 XR, lumbosacra l spine, 2 or 3 view - self pay 2023 024 [facility] [address], [place], [address], 4 14:34:00 XR, lumbosacra l spine 2019 020 [email or web address] Not available 0 16:16:08 Medication Orders amoxicilli n 875 mg tablet 2024 025 [facility], [address] [place] [address], [id number], 5 18:12:22 sumatripta n 100 mg tablet 2024 025 [facility], [address] [place] [address], [id number], 5 18:12:25 amitriptyl ine 10 mg tablet 2023 024 [facility], [address] [place] [address], [id number], 5 17:27:25 losartan 50 mg tablet 2023 024 [facility], [address] [place] [address], [id number], 5 17:27:22 meclizine 12.5 mg tablet 2023 024 [facility], [address] [place] [address], [id number], 4 17:55:07 famotidine 10 mg tablet 2023 024 [facility], [address] [place] [address], [id number], 4 16:53:50 losartan 25 mg tablet 2023 [facility], [address] [place] [address], [id number], 4 18:15:29 dicyclomin e 20 mg tablet 2023 024 [facility], [address] [place] [address], [id number], 4 17:33:30 omeprazole 20 mg capsule,de layed release 2019 020 [facility], [address] [place] [address], [id number], 4 17:41:22 ibuprofen 800 mg tablet 2019 [facility], [address] [place] [address], [id number], 4 10:18:55 chlorthali done 25 mg tablet 2019 020 [email or web address] 4 [facility], [address] [place] [address], [id number], 4 09:53:59 aspirin 81 mg tablet,del ayed release 2019 020 [email or web address] 4 [facility], [address] [place] [address], [id number], 09:54:36 Patient TargetsNo targets recorded. Patient Instructions Encounter Date Encounter Id Patient Instructions Last Modified By Organization Details Last Modified Time 09/22/2019 [id number] vision screen* - LT 20/20, RT 20/20, both 20/20 [email or web address] Not available 09/22/2019 16:38:58 enfermedad de reflujo gastroesof gico (GERD): instrucciones de cuidado - [gastroesophageal reflux disease (GERD): care instructions] [email or web address] Not available 09/22/2019 16:14:03 aprenda acerca del peso saludable - [learning about healthy weight] yarauz Not available 09/22/2019 15:53:19 aprenda sobre la presi n arterial martell - [learning about high blood pressure] yarauz Not available 09/22/2019 15:53:20 Uncontrolled Hypertension potential risks, heart attack, , stroke, kidney failure etc. Hypertension is the silent Killer Take your Hypertension medication daily keep appointments stop concentrated sugars--follow 1500 meal plan exercise 50-60 minutes daily on most days see eye doctor once a year see dentist every 6 months Discharge Instructions - Back Pain and Neck Pain - Avoid heavy lifting and over-exertion. - Avoid bed-rest do some gentle stretching and continue with normal activities. - Use ice to relieve pain, 15 minutes every 2 4 hours. - Use heat to relax muscles, 15 minutes every 2 4 hours. - Sleep on a firm surface and avoid lying on the sofa. Avoid all breads, potatoes, cereal, pasta, rice, margarine, refined sugars, milk yogurt, ice cream, juices, soda (including diet), beer, and manmade or manufactured desserts. Enjoy steak, fish, chicken (no skin), pork, butter, vegetables, beans, nuts, whole eggs, cheese (low fat or skim), cream in your coffee. vaccines yarauz Not available 09/23/2019 11:58:50 12/10/2023 [id number] cuidado de la espalda y prevenci n de lesiones: instrucciones de cuidado - [back care and preventing injuries: care instructions] jenn Not available 12/10/2023 10:22:58 enfermedad de reflujo gastroesof gico (GERD): instrucciones de cuidado - [gastroesophageal reflux disease (GERD): care instructions] jenn Not available 12/10/2023 10:21:42 A healthy lifestyle: care instructions jenn Not available 12/10/2023 10:21:42 aturdimiento o desmayo: instrucciones de cuidado - [lightheadedness or faintness: care instructions] jenn Not available 12/10/2023 10:23:06 hernia umbilical : instrucciones de cuidado - [umbilical hernia: care instructions] jenn Not available 12/10/2023 10:23:42 dash diet: care instructions jenn Not available 12/10/2023 10:21:42 How To Lower Blood Pressure jenn Not available 12/10/2023 10:21:42 presi n arterial martell: instrucciones de cuidado - [high blood pressure: care instructions] jenn Not available 12/10/2023 10:23:16 diet for irritable bowel syndrome: care instructions jenn Not available 12/10/2023 10:21:42 dieta para el s ndrome del intestino irritable: instrucciones de cuidado - [diet for irritable bowel syndrome: care instructions] jenn Not available 12/10/2023 10:22:23 aprenda acerca d e la dieta baja en fodmap para el s ndrome del intestino irritable - [learning about the low fodmap diet for irritable bowel syndrome (IBS)] jenn Not available 12/10/2023 10:22:23 Follow up in clinic in one month jenn Not available 12/10/2023 10:33:17 02/03/2024 [id number] dash diet: care instructions jenn Not available 02/03/2024 17:49:44 How To Lower Blood Pressure jenn Not available 02/03/2024 17:49:44 07/14/2024 [id number] ear infection (otitis media): care instructions jenn Not available 07/20/2024 08:49:24 migra recurrentes: instrucciones de cuidado - [recurring migraine headache: care instructions] jenn Not available 07/14/2024 17:29:57 dash diet: care instructions jenn Not available 07/14/2024 17:29:57 How To Lower Blood Pressure jenn Not available 07/14/2024 17:29:57 Reason for Referral General Surgeon Referral for Umbilical hernia Pt has umbilical and inguinal hernia based on ER report. Referring Physician: Elizabeth Patrick [facility], Encounter Date: 12/10/2023 Slide Attendant Referral for Hi story of syncope Referring Physician: Elizabeth Patrick [facility], Encounter Date: 12/10/2023 Physical Therapist Referral for Low back pain Needs PT for chronic back pain and needs PT for vertigo Referring Physician: Elizabeth Patrick [facility], Encounter Date: 12/10/2023 Physical Therapist Referral for Chronic low back pain Referring Physician: Elizabeth Patrick [facility], Encounter Date: 02/03/2024 Orthopedic Spine Surgeon Ref erral for Chronic low back pain Referring Physician: Elizabeth Patrick [facility], Encounter Date: 07/14/2024 Neurologist Referral for Ref ractory migraine without aura pt is self pay. Please find a place with financial assistance. Referring Physician: Elizabeth Patrick [facility], Encounter Date: 08/24/2024 Results Created Date Observation Date Name Description Value Unit Range Abnormal Flag Note LastModifiedBy Organization Detail LastModifiedTime 09/22/1909/23/2019 CBC w/ auto diff WBC 6.6 x10e3 /uL 3.4-10 .8 Not Available [facility] ([facility]) [address] [facility], [place], [address], 09/23/2019 09:14:43 09/22/1909/23/2019 CBC w/ auto diff RBC 5.13 x10e6 /uL 4.14-5 .80 Not Available [facility] ([facility]) [address] [facility], [place], [address], 09/23/2019 09:14:43 09/22/1909/23/2019 CBC w/ auto diff hemoglobin 15.2 g/dL 13.0-1 7.7 Not Available [facility] ([facility]) [address] [facility], [place], [address], 09/23/2019 09:14:43 09/22/1909/23/2019 CBC w/ auto diff hematocrit 45.3 % 37.5-5 1.0 Not Available [facility] ([facility]) [address] [facility], [place], [address], 09/23/2019 09:14:43 09/22/1909/23/2019 CBC w/ auto diff MCV 88 fL 79-97 Not Available [facility] ([facility]) [address] [facility], [place], [address], 09/23/2019 09:14:43 09/22/1909/23/2019 CBC w/ auto diff MCH 29.6 pg 26.6-3 3.0 Not Available [facility] ([facility]) [address] [facility], [place], [address], 09/23/2019 09:14:43 09/22/1909/23/2019 CBC w/ auto diff MCHC 33.6 g/dL 31.5-3 5.7 Not Available [facility] ([facility]) [address] [facility], [place], [address], 09/23/2019 09:14:43 09/22/1909/23/2019 CBC w/ auto diff RDW 13.3 % 11.6-1 5.4 Not Available [facility] ([facility]) [address] [facility], [place], [address], 09/23/2019 09:14:43 09/22/1909/23/2019 CBC w/ auto diff platelets 277 x10e3 /uL 150-45 0 Not Available [facility] ([facility]) [address] [facility], [place], [address], 09/23/2019 09:14:43 09/22/19 20 09/23/2019 CBC w/ auto diff neutrophils 62 % not estab. Not Available [facility] ([facility]) [address] [facility], [place], [address], 09/23/2019 09:14:43 09/22/19 20 09/23/2019 CBC w/ auto diff lymphs 28 % not estab. Not Available [facility] ([facility]) [address] [facility], [place], [address], 09/23/2019 09:14:43 09/22/1909/23/2019 CBC w/ auto diff monocytes 8 % not estab. Not Available [facility] ([facility]) [address] [facility], [place], [address], 09/23/2019 09:14:43 09/22/1909/23/2019 CBC w/ auto diff eos 1 % not estab. Not Available [facility] ([facility]) [address] [facility], [place], [address], 09/23/2019 09:14:43 09/22/1909/23/2019 CBC w/ auto diff basos 1 % not estab. Not Available [facility] ([facility]) [address] [facility], [place], [address], 09/23/2019 09:14:43 09/22/1909/23/2019 CBC w/ auto diff immature cells REHABILITATION PHYSICIAN Not Available [facility] ([facility]) [address] [place], [address], 09/23/2019 09:14:43 09/22/1909/23/2019 CBC w/ auto diff neutrophils (absolute) 4.1 x10e3 /uL 1.4-7. 0 Not Available [facility] ([facility]) [address] [facility], [place], [address], 09/23/2019 09:14:43 09/22/1909/23/2019 CBC w/ auto diff lymphs (absolute) 1.9 x10e3 /uL 0.7-3. 1 Not Available [facility] ([facility]) [address] [facility], [place], [address], 09/23/2019 09:14:43 09/22/1909/23/2019 CBC w/ auto diff monocytes(ab solute) 0.5 x10e3 /uL 0.1-0. 9 Not Available [facility] ([facility]) [address] [facility], [place], [address], 09/23/2019 09:14:43 09/22/1909/23/2019 CBC w/ auto diff eos (absolute) 0.1 x10e3 /uL 0.0-0. 4 Not Available [facility] ([facility]) [address] [facility], [place], [address], 09/23/2019 09:14:43 09/22/1909/23/2019 CBC w/ auto diff baso (absolute) 0.0 x10e3 /uL 0.0-0. 2 Not Available [facility] ([facility]) [address] [facility], [place], [address], 09/23/2019 09:14:43 09/22/1909/23/2019 CBC w/ auto diff immature granulocytes 0 % not estab. Not Available [facility] ([facility]) [address] [facility], [place], [address], 09/23/2019 09:14:43 09/22/1909/23/2019 CBC w/ auto diff immature grans (abs) 0.0 x10e3 /uL 0.0-0. 1 Not Available [facility] ([facility]) [address] [facility], [place], [address], 09/23/2019 09:14:43 09/22/1909/23/2019 CBC w/ auto diff NRBC REHABILITATION PHYSICIAN Not Available [facility] ([facility]) [address] [facility] [place], [address], 09/23/2019 09:14:43 09/22/1909/23/2019 CBC w/ auto diff hematology comments: REHABILITATION PHYSICIAN Not Available [facility] ([facility]) [address] [facility] [place], [address], 09/23/2019 09:14:43 09/22/1909/23/2019 CMP, serum or plasm a glucose 87 mg/dL 65-99 Not Available [facility] ([facility]) [address] [facility] [place], [address], 09/23/2019 09:14:43 09/22/1909/23/2019 CMP, serum or plasm a BUN 11 mg/dL 6-20 Not Available [facility] ([facility]) [address] [facility] [place], [address], 09/23/2019 09:14:43 09/22/1909/23/2019 CMP, serum or plasm a creatinine 0.67 mg/dL 0.76-1 .27 below low normal Not Available [facility] ([facility]) [address] [facility] [place], [address], 09/23/2019 09:14:43 09/22/1909/23/2019 CMP, serum or plasm a eGFR if nonafricn AM 123 mL/mi n/1.7 3 >59 Not Available [facility] ([facility]) [address] [facility] [place], [address], 09/23/2019 09:14:43 09/22/1909/23/2019 CMP, serum or plasm a eGFR if africn AM 142 mL/mi n/1.7 3 >59 Not Available [facility] ([facility]) [address] [facility] [place], [address], 09/23/2019 09:14:43 09/22/19 20 09/23/2019 CMP, serum or plasm a BUN/creatini ne ratio 16 9-20 Not Available [facility] ([facility]) [address] [place], [address], 09/23/2019 09:14:43 09/22/19 20 09/23/2019 CMP, serum or plasm a sodium 140 mmol/ L 134-14 4 Not Available [facility] ([facility]) [address] [place], [address], 09/23/2019 09:14:43 09/22/1909/23/2019 CMP, serum or plasm a potassium 4.2 mmol/ L 3.5-5. 2 Not Available [facility] ([facility]) [address] [place], [address], 09/23/2019 09:14:43 09/22/1909/23/2019 CMP, serum or plasm a chloride 103 mmol/ L 96-106 Not Available [facility] ([facility]) [address] [place], [address], 09/23/2019 09:14:43 09/22/1909/23/2019 CMP, serum or plasm a carbon dioxide, total 23 mmol/ L 20-29 Not Available [facility] ([facility]) [address] [place], [address], 09/23/2019 09:14:43 09/22/1909/23/2019 CMP, serum or plasm a calcium 9.3 mg/dL 8.7-10 .2 Not Available [facility] ([facility]) [address] [place], [address], 09/23/2019 09:14:43 09/22/1909/23/2019 CMP, serum or plasm a protein, total 7.4 g/dL 6.0-8. 5 Not Available [facility] ([facility]) [address] [place] [place], [address], 09/23/2019 09:14:43 09/22/1909/23/2019 CMP, serum or plasm a albumin 4.7 g/dL 4.0-5. 0 Not Available [facility] ([facility]) [address] [place] [place], [address], 09/23/2019 09:14:43 09/22/1909/23/2019 CMP, serum or plasm a globulin, total 2.7 g/dL 1.5-4. 5 Not Available [facility] ([facility]) [address] [place] [place], [address], 09/23/2019 09:14:43 09/22/1909/23/2019 CMP, serum or plasm a A/G ratio 1.7 1.2-2. 2 Not Available [facility] ([facility]) [address] [place], [address], 09/23/2019 09:14:43 09/22/1909/23/2019 CMP, serum or plasm a bilirubin, total 0.2 mg/dL 0.0-1. 2 Not Available [facility] ([facility]) [address] [facility], [place], [address], 09/23/2019 09:14:43 09/22/1909/23/2019 CMP, serum or plasm a alkaline phosphatase 98 IU/L 39-117 Not Available [facility] ([facility]) [address] [facility] [place], [address], 09/23/2019 09:14:43 09/22/1909/23/2019 CMP, serum or plasm a AST (SGOT) 30 IU/L 0-40 Not Available [facility] ([facility]) [address] [place], [address], 09/23/2019 09:14:43 09/22/1909/23/2019 CMP, serum or plasm a ALT (SGPT) 40 IU/L 0-44 Not Available [facility] ([facility]) [address] [facility], [place], [address], 09/23/2019 09:14:43 09/22/1909/23/2019 urina lysis , compl ete specific gravity 1.010 1.005- 1.030 Not Available [facility] ([facility]) [address] [facility], [place], [address], 09/23/2019 09:14:44 09/22/1909/23/2019 urina lysis , compl ete pH 6.5 5.0-7. 5 Not Available [facility] ([facility]) [address] [facility], [place], [address], 09/23/2019 09:14:44 09/22/1909/23/2019 urina lysis , compl ete urine-color Yellow yellow Not Available [facility] ([facility]) [address] [facility], [place], [address], 09/23/2019 09:14:44 09/22/1909/23/2019 urina lysis , compl ete appearance Clear clear Not Available [facility] ([facility]) [address] [facility], [place], [address], 09/23/2019 09:14:44 09/22/1909/23/2019 urina lysis , compl ete WBC esterase Negati ve negati ve Not Available [facility] ([facility]) [address] [facility], [place], [address], 09/23/2019 09:14:44 09/22/1909/23/2019 urina lysis , compl ete protein Negati ve negati ve/tra ce Not Available [facility] ([facility]) [address] [facility], [place], [address], 09/23/2019 09:14:44 09/22/1909/23/2019 urina lysis , compl ete glucose Negati ve negati ve Not Available [facility] ([facility]) [address] [place], [address], 09/23/2019 09:14:44 09/22/1909/23/2019 urina lysis , compl ete ketones Negati ve negati ve Not Available [facility] ([facility]) [address] [place], [address], 09/23/2019 09:14:44 09/22/1909/23/2019 urina lysis , compl ete occult blood Negati ve negati ve Not Available [facility] ([facility]) [address] [place], [address], 09/23/2019 09:14:44 09/22/1909/23/2019 urina lysis , compl ete bilirubin Negati ve negati ve Not Available [facility] ([facility]) [address] [place], [address], 09/23/2019 09:14:44 09/22/1909/23/2019 urina lysis , compl ete urobilinogen ,semi-qn 0.2 mg/dL 0.2-1. 0 Not Available [facility] ([facility]) [address] [place], [address], 09/23/2019 09:14:44 09/22/1909/23/2019 urina lysis , compl ete nitrite, urine Negati ve negati ve Not Available [facility] ([facility]) [address] [place], [address], 09/23/2019 09:14:44 09/22/1909/23/2019 urina lysis , compl ete microscopic examination Commen t Micro scopi c not indic ated and not perfo rmed. Not Available [facility] ([facility]) [address] [place], [address], 09/23/2019 09:14:44 09/22/1909/23/2019 TSH, ultra -sens itive , serum TSH 1.320 uIU/m L 0.450- 4.500 Not Available [facility] ([facility]) [address] [facility], [place], [address], 09/23/2019 09:14:45 09/22/1909/22/2019 HbA1c (hemo globi n A1c), blood HbA1c 5.6 Not Available In-Office Order Internal Use Only DO Not Attach Compendium DO Not Attach Compendium, Do Not Delete/merge, [id number] 09/22/2019 15:50:58 12/10/1912/10/2023 HEMOG LOBIN A1C hemoglobin A1C 5.7 % 4.8-5. 6 above high normal Predi abete s: 5.7 - 6.4 Diabe sonia: >6.4 Glyce mary jane contr ol for adult s with diabe sonia: <7.0 Not Available [facility] ([facility]) [address] [facility], [place], [address], 12/11/2023 00:07:28 12/10/1912/11/2023 ACUTE HEPAT ITIS hep A Ab, IgM NEGATI VE negati ve A negat nat anti- HAV IgM resul t sugge sts no recen t or curre nt HAV infec tion. Not Available [facility] ([facility]) [address] [facility], [place], [address], 12/12/2023 06:19:25 12/10/19 24 12/11/2023 ACUTE HEPAT ITIS HBsAg screen NEGATI VE negati ve Not Available [facility] ([facility]) [address] [facility], [place], [address], 12/12/2023 06:19:25 12/10/19 24 12/11/2023 ACUTE HEPAT ITIS hep B core Ab, IgM NEGATI VE negati ve Not Available [facility] ([facility]) [address] [place], [address], 12/12/2023 06:19:25 12/10/1912/11/2023 ACUTE HEPAT ITIS HCV Ab NON REACTI VE nonrea ctive Not Available [facility] ([facility]) [address] [place], [address], 12/12/2023 06:19:25 12/10/1912/11/2023 INTER PRETA TION: interpretati on: Commen t Not infec la with HCV unles s early or acute infec tion is suspe cted (whic h may be delay ed in an immun ocomp romis ed indiv idual ), or other evide nce exist s to indic ate HCV infec tion. Not Available [facility] ([facility]) [address] [place], [address], 12/12/2023 06:19:26 12/10/1912/11/2023 H PYLOR I BREAT H TEST H pylori breath test POSITI VE negati ve abnormal Not Available [facility] ([facility]) [address] [place], [address], 12/12/2023 06:19:27 12/10/19 24 12/11/2023 CT, NG, TRICH VAG BY JOHNNY chlamydia by JOHNNY NEGATI VE negati ve Not Available [facility] ([facility]) [address] [place], [address], 12/12/2023 06:19:28 12/10/1912/11/2023 CT, NG, TRICH VAG BY JOHNNY gonococcus by JOHNNY NEGATI VE negati ve Not Available [facility] ([facility]) [address] [place], [address], 12/12/2023 06:19:28 12/10/19 24 12/11/2023 CT, NG, TRICH VAG BY JOHNNY trich vag by JOHNNY NEGATI VE negati ve Not Available [facility] ([facility]) [address] [place], [address], 12/12/2023 06:19:28 12/10/1912/11/2023 LIPID PANEL cholesterol, total 188 mg/dL 100-19 9 Not Available [facility] ([facility]) [address] [facility], [place], [address], 12/12/2023 06:19:29 12/10/1912/11/2023 LIPID PANEL triglyceride s 211 mg/dL 0-149 above high normal Not Available [facility] ([facility]) [address] [facility], [place], [address], 12/12/2023 06:19:29 12/10/1912/11/2023 LIPID PANEL HDL cholesterol 29 mg/dL >39 below low normal Not Available [facility] ([facility]) [address] [facility], [place], [address], 12/12/2023 06:19:29 12/10/1912/11/2023 LIPID PANEL VLDL cholesterol rachel 38 mg/dL 5-40 Not Available [facility] ([facility]) [address] [facility], [place], [address], 12/12/2023 06:19:29 12/10/19 24 12/11/2023 LIPID PANEL LDL chol calc ([facility]) 121 mg/dL 0-99 above high normal Not Available [facility] ([facility]) [address] [facility], [place], [address], 12/12/2023 06:19:29 12/10/1912/11/2023 MICRO SCOPI C EXAMI NATIO N WBC None seen /hpf 0-5 Not Available [facility] ([facility]) [address] [facility], [place], [address], 12/12/2023 06:19:30 12/10/19 24 12/11/2023 MICRO SCOPI C EXAMI NATIO N RBC 3-10 /hpf 0-2 abnormal Not Available [facility] ([facility]) [address], [place], [address], 12/12/2023 06:19:30 12/10/1912/11/2023 MICRO SCOPI C EXAMI NATIO N epithelial cells (non renal) None seen /hpf 0-10 Not Available [facility] ([facility]) [address] [facility], [place], [address], 12/12/2023 06:19:30 12/10/1912/11/2023 MICRO SCOPI C EXAMI NATIO N casts None seen /lpf nonese en Not Available [facility] ([facility]) [address] [facility], [place], [address], 12/12/2023 06:19:30 12/10/1912/11/2023 MICRO SCOPI C EXAMI NATIO N mucus threads Presen t notest ab. Not Available [facility] ([facility]) [address] [facility], [place], [address], 12/12/2023 06:19:30 12/10/1912/11/2023 MICRO SCOPI C EXAMI NATIO N bacteria None seen nonese en/few Not Available [facility] ([facility]) [address] [facility], [place], [address], 12/12/2023 06:19:30 12/10/1912/11/2023 UA WITH CULTU RE REFLE X specific gravity 1.015 1.005- 1.030 Not Available [facility] ([facility]) [address] [facility], [place], [address], 12/12/2023 06:19:30 12/10/1912/11/2023 UA WITH CULTU RE REFLE X pH 6.0 5.0-7. 5 Not Available [facility] ([facility]) [address] [facility], [place], [address], 12/12/2023 06:19:30 12/10/19 24 12/11/2023 UA WITH CULTU RE REFLE X urine-color YELLOW yellow Not Available [facility] ([facility]) [address] [facility], [place], [address], 12/12/2023 06:19:30 12/10/19 24 12/11/2023 UA WITH CULTU RE REFLE X appearance CLEAR clear Not Available [facility] ([facility]) [address] [facility], [place], [address], 12/12/2023 06:19:30 12/10/1912/11/2023 UA WITH CULTU RE REFLE X WBC esterase NEGATI VE negati ve Not Available [facility] ([facility]) [address] [facility], [place], [address], 12/12/2023 06:19:30 12/10/19 24 12/11/2023 UA WITH CULTU RE REFLE X protein TRACE negati ve/tra ce Not Available [facility] ([facility]) [address] [facility], [place], [address], 12/12/2023 06:19:30 12/10/19 24 12/11/2023 UA WITH CULTU RE REFLE X glucose NEGATI VE negati ve Not Available [facility] ([facility]) [address] [facility], [place], [address], 12/12/2023 06:19:30 12/10/19 24 12/11/2023 UA WITH CULTU RE REFLE X ketones NEGATI VE negati ve Not Available [facility] ([facility]) [address] [facility], [place], [address], 12/12/2023 06:19:30 12/10/19 24 12/11/2023 UA WITH CULTU RE REFLE X occult blood 2+ negati ve abnormal Not Available [facility] ([facility]) [address] [facility], [place], [address], 12/12/2023 06:19:30 12/10/19 24 12/11/2023 UA WITH CULTU RE REFLE X bilirubin NEGATI VE negati ve Not Available [facility] ([facility]) [address] [place], [address], 12/12/2023 06:19:30 12/10/1912/11/2023 UA WITH CULTU RE REFLE X urobilinogen ,semi-qn 0.2 mg/dL 0.2-1. 0 Not Available [facility] ([facility]) [address] [place], [address], 12/12/2023 06:19:30 12/10/1912/11/2023 UA WITH CULTU RE REFLE X nitrite, urine NEGATI VE negati ve Not Available [facility] ([facility]) [address] [place], [address], 12/12/2023 06:19:30 12/10/1912/11/2023 UA WITH CULTU RE REFLE X microscopic examination SEE BELOW: Micro scopi c was indic ated and was perfo rmed. Not Available [facility] ([facility]) [address] [place], [address], 12/12/2023 06:19:30 12/10/1912/11/2023 UA WITH CULTU RE REFLE X urinalysis reflex COMMEN T This speci men has refle xed to a Urine Cultu re. Not Available [facility] ([facility]) [address] [place], [address], 12/12/2023 06:19:30 12/10/1912/11/2023 IRON AND TIBC iron bind.cap.(TI BC) 257 ug/dL 250-45 0 Not Available [facility] ([facility]) [address] [place], [address], 12/12/2023 06:19:31 12/10/1912/11/2023 IRON AND TIBC UIBC 162 ug/dL 111-34 3 Not Available [facility] ([facility]) [address] [place], [address], 12/12/2023 06:19:31 12/10/19 24 12/11/2023 IRON AND TIBC iron 95 ug/dL 38-169 Not Available [facility] ([facility]) [address] [facility], [place], [address], 12/12/2023 06:19:31 12/10/1912/11/2023 IRON AND TIBC iron saturation 37 % 15-55 Not Available [facility] ([facility]) [address] [facility], [place], [address], 12/12/2023 06:19:31 12/10/1912/10/2023 CBC WITH DIFFE RENTI AL/PL ATELE T WBC 5.5 x10e3 /uL 3.4-10 .8 Not Available [facility] ([facility]) [address] [place], [address], 12/12/2023 06:19:32 12/10/1912/10/2023 CBC WITH DIFFE RENTI AL/PL ATELE T RBC 5.15 x10e6 /uL 4.14-5 .80 Not Available [facility] ([facility]) [address] [place], [address], 12/12/2023 06:19:32 12/10/19 24 12/10/2023 CBC WITH DIFFE RENTI AL/PL ATELE T hemoglobin 14.8 g/dL 13.0-1 7.7 Not Available [facility] ([facility]) [address] [facility], [place], [address], 12/12/2023 06:19:32 12/10/19 24 12/10/2023 CBC WITH DIFFE RENTI AL/PL ATELE T hematocrit 45.5 % 37.5-5 1.0 Not Available [facility] ([facility]) [address] [facility], [place], [address], 12/12/2023 06:19:32 12/10/19 24 12/10/2023 CBC WITH DIFFE RENTI AL/PL ATELE T MCV 88 fL 79-97 Not Available [facility] ([facility]) [address] [facility], [place], [address], 12/12/2023 06:19:32 12/10/19 24 12/10/2023 CBC WITH DIFFE RENTI AL/PL ATELE T MCH 28.7 pg 26.6-3 3.0 Not Available [facility] ([facility]) [address] [facility], [place], [address], 12/12/2023 06:19:32 12/10/19 24 12/10/2023 CBC WITH DIFFE RENTI AL/PL ATELE T MCHC 32.5 g/dL 31.5-3 5.7 Not Available [facility] ([facility]) [address] [facility], [place], [address], 12/12/2023 06:19:32 12/10/19 24 12/10/2023 CBC WITH DIFFE RENTI AL/PL ATELE T RDW 13.1 % 11.6-1 5.4 Not Available [facility] ([facility]) [address] [facility], [place], [address], 12/12/2023 06:19:32 12/10/19 24 12/10/2023 CBC WITH DIFFE RENTI AL/PL ATELE T platelets 286 x10e3 /uL 150-45 0 Not Available [facility] ([facility]) [address] [facility], [place], [address], 12/12/2023 06:19:32 12/10/19 24 12/10/2023 CBC WITH DIFFE RENTI AL/PL ATELE T neutrophils 59 % notest ab. Not Available [facility] ([facility]) [address] [facility], [place], [address], 12/12/2023 06:19:32 12/10/19 24 12/10/2023 CBC WITH DIFFE RENTI AL/PL ATELE T lymphs 30 % notest ab. Not Available [facility] ([facility]) [address] [facility], [place], [address], 12/12/2023 06:19:32 12/10/19 24 12/10/2023 CBC WITH DIFFE RENTI AL/PL ATELE T monocytes 8 % notest ab. Not Available [facility] ([facility]) [address] [facility], [place], [address], 12/12/2023 06:19:32 12/10/19 24 12/10/2023 CBC WITH DIFFE RENTI AL/PL ATELE T eos 2 % notest ab. Not Available [facility] ([facility]) [address] [facility], [place], [address], 12/12/2023 06:19:32 12/10/1912/10/2023 CBC WITH DIFFE RENTI AL/PL ATELE T basos 1 % notest ab. Not Available [facility] ([facility]) [address] [facility], [place], [address], 12/12/2023 06:19:32 12/10/19 24 12/10/2023 CBC WITH DIFFE RENTI AL/PL ATELE T neutrophils (absolute) 3.3 x10e3 /uL 1.4-7. 0 Not Available [facility] ([facility]) [address] [facility], [place], [address], 12/12/2023 06:19:32 12/10/19 24 12/10/2023 CBC WITH DIFFE RENTI AL/PL ATELE T lymphs (absolute) 1.6 x10e3 /uL 0.7-3. 1 Not Available [facility] ([facility]) [address] [facility], [place], [address], 12/12/2023 06:19:32 12/10/19 24 12/10/2023 CBC WITH DIFFE RENTI AL/PL ATELE T monocytes(ab solute) 0.4 x10e3 /uL 0.1-0. 9 Not Available [facility] ([facility]) [address] [facility], [place], [address], 12/12/2023 06:19:32 12/10/19 24 12/10/2023 CBC WITH DIFFE RENTI AL/PL ATELE T eos (absolute) 0.1 x10e3 /uL 0.0-0. 4 Not Available [facility] ([facility]) [address] [facility], [place], [address], 12/12/2023 06:19:32 12/10/19 24 12/10/2023 CBC WITH DIFFE RENTI AL/PL ATELE T baso (absolute) 0.0 x10e3 /uL 0.0-0. 2 Not Available [facility] ([facility]) [address] [facility], [place], [address], 12/12/2023 06:19:32 12/10/19 24 12/10/2023 CBC WITH DIFFE RENTI AL/PL ATELE T immature granulocytes 0 % notest ab. Not Available [facility] ([facility]) [address] [facility], [place], [address], 12/12/2023 06:19:32 12/10/19 24 12/10/2023 CBC WITH DIFFE RENTI AL/PL ATELE T immature grans (abs) 0.0 x10e3 /uL 0.0-0. 1 Not Available [facility] ([facility]) [address] [facility], [place], [address], 12/12/2023 06:19:32 12/10/19 24 12/12/2023 URINE CULTU RE, ROUTI NE urine culture, routine Final report Not Available [facility] ([facility]) [address] [facility], [place], [address], 12/12/2023 06:19:34 12/10/1912/12/2023 URINE CULTU RE, ROUTI NE result 1 No growth Not Available [facility] ([facility]) [address] [facility], [place], [address], 12/12/2023 06:19:34 12/10/19 24 12/11/2023 RPR, RFX QN RPR/C ONFIR M TP RPR NON REACTI VE nonrea ctive Not Available [facility] ([facility]) [address] [facility], [place], [address], 12/12/2023 06:19:34 12/10/19 24 12/11/2023 HIV AB/P2 4 AG WITH REFLE X HIV Ab/P24 Ag screen NON REACTI VE nonrea ctive HIV-1 /HIV- 2 antib odies and HIV-1 p24 antig en were NOT detec la. There is no labor atory evide nce of HIV infec tion. HIV Negat nat Not Available [facility] ([facility]) [address] [facility], [place], [address], 12/12/2023 06:19:35 02/12/20 24 02/13/2024 H PYLOR I BREAT H TEST H pylori breath test NEGATI VE negati ve Not Available [facility] ([facility]) [address] [facility], [place], [address], 02/13/2024 16:13:15 02/12/20 24 02/13/2024 COMP. METAB OLIC PANEL (14) glucose 112 mg/dL 70-99 above high normal Not Available [facility] ([facility]) [address] [facility], [place], [address], 02/13/2024 16:13:16 02/12/20 24 02/13/2024 COMP. METAB OLIC PANEL (14) BUN 15 mg/dL 6-24 Not Available [facility] ([facility]) [address] [place] [place], [address], 02/13/2024 16:13:16 02/12/20 24 02/13/2024 COMP. METAB OLIC PANEL (14) creatinine 0.62 mg/dL 0.76-1 .27 below low normal Not Available [facility] ([facility]) [address] [place] [place], [address], 02/13/2024 16:13:16 02/12/20 24 02/13/2024 COMP. METAB OLIC PANEL (14) eGFR 122 mL/mi n/1.7 3 >59 Not Available [facility] ([facility]) [address] [place], [address], 02/13/2024 16:13:16 02/12/20 24 02/13/2024 COMP. METAB OLIC PANEL (14) BUN/creatini ne ratio 24 9-20 above high normal Not Available [facility] ([facility]) [address] [facility], [place], [address], 02/13/2024 16:13:16 02/12/20 24 02/13/2024 COMP. METAB OLIC PANEL (14) sodium 142 mmol/ L 134-14 4 Not Available [facility] ([facility]) [address] [place], [address], 02/13/2024 16:13:16 02/12/20 24 02/13/2024 COMP. METAB OLIC PANEL (14) potassium 3.7 mmol/ L 3.5-5. 2 Not Available [facility] ([facility]) [address] [place], [address], 02/13/2024 16:13:16 02/12/20 24 02/13/2024 COMP. METAB OLIC PANEL (14) chloride 105 mmol/ L 96-106 Not Available [facility] ([facility]) [address] [place], [address], 02/13/2024 16:13:16 02/12/20 24 02/13/2024 COMP. METAB OLIC PANEL (14) carbon dioxide, total 23 mmol/ L Not Available [facility] ([facility]) [address] [place], [address], 02/13/2024 16:13:16 02/12/20 24 02/13/2024 COMP. METAB OLIC PANEL (14) calcium 8.9 mg/dL 8.7-10 .2 Not Available [facility] ([facility]) [address] [place], [address], 02/13/2024 16:13:16 02/12/20 24 02/13/2024 COMP. METAB OLIC PANEL (14) protein, total 7.0 g/dL 6.0-8. 5 Not Available [facility] ([facility]) [address] [place], [address], 02/13/2024 16:13:16 02/12/20 24 02/13/2024 COMP. METAB OLIC PANEL (14) albumin 4.2 g/dL 4.1-5. 1 Not Available [facility] ([facility]) [address] [place], [address], 02/13/2024 16:13:16 02/12/20 24 02/13/2024 COMP. METAB OLIC PANEL (14) globulin, total 2.8 g/dL 1.5-4. 5 Not Available [facility] ([facility]) [address] [place], [address], 02/13/2024 16:13:16 02/12/20 24 02/13/2024 COMP. METAB OLIC PANEL (14) bilirubin, total 0.2 mg/dL 0.0-1. 2 Not Available [facility] ([facility]) [address] [place], [address], 02/13/2024 16:13:16 02/12/20 24 02/13/2024 COMP. METAB OLIC PANEL (14) alkaline phosphatase 154 IU/L 44-121 above high normal Not Available [facility] ([facility]) [address] [place], [address], 02/13/2024 16:13:16 02/12/20 24 02/13/2024 COMP. METAB OLIC PANEL (14) AST (SGOT) 27 IU/L 0-40 Not Available [facility] ([facility]) [address] [place], [address], 02/13/2024 16:13:16 02/12/20 24 02/13/2024 COMP. METAB OLIC PANEL (14) ALT (SGPT) 48 IU/L 0-44 above high normal Not Available [facility] ([facility]) [address] [place], [address], 02/13/2024 16:13:16 02/12/20 24 02/12/2024 XR, lumbo sacra l spine , 2 or 3 view No observ ation record ed. [facility] ([facility]) [address] [place], [address], 03/02/2024 13:25:10 07/30/19 25 07/28/2024 MRI, brain , w/o contr ast No observ ation record ed. [facility] Scheduling [address] [place], [address], 08/13/2024 11:35:37 07/30/19 25 07/28/2024 MRI, lumba r spine , w/o contr ast No observ ation record ed. [facility] Scheduling [address] [place], [address], 08/13/2024 11:35:38 09/05/19 25 09/01/2024 MRI, pitui tary, w/wo contr ast No observ ation record ed. [facility] Scheduling [address], [place], [address], 09/24/2024 15:35:21 Result Notes None recorded. Problems Name Problem SNOMED Code Status Onset Date Resolution Date Notes Provider Name and Address Organization Details Recorded Time Hypertensive disorder 54151728 Active 2019 Vasiliy yeboah, [place] - [facility] 0 15:28:13 Essential hypertension 54628784 Active 2019 DUNIA Pate Attn: Accountin g,[address] [facility], [place], [address], [place] [facility] 0 11:56:50 Chronic back pain 818567746 Active 2019 DUNIA Pate Attn: Accountin g,[address] [place], [address], [place] [facility] 0 11:57:08 Body mass index 25-29 - overweight 855894432 Active 2019 KAYLEIGH PateLORETTA Attn: Accountin g,[address] [facility], [place], [address], [place] [facility] 0 11:57:12 Headache 44385333 Active 2019 DUNIA Pate Attn: Accountin g,[address] [facility], [place], [address], [place] [facility] 0 11:57:30 Gastroesophage al reflux disease 793456004 Active 2019 KAYLEIGH PateLORETTA Attn: Accountin g,[address] [facility], [place], [address], [place] [facility] 0 11:57:53 Steatotic liver disease 451947863 Active 2023 ELIZABETH PATRICK NP Attn: Accountin g,[address] [facility], [place], [address], [place] [facility] 4 10:28:34 Problem Notes None recorded. Medical Equipment None Reported. Allergies Allergen ID Allergen Name Allergen Category Reaction Reaction Severity Criticality Documentation Date Start Date Code Code System Note Provider Name and Address Organization Details Recorded Time 349995 amitripty line medicatio n Not available Not available Not available 07/14/2024 704 RxNorm dizzi ness ELIZABETH PATRICK NP Attn: Janelle delaney,[address] [facility], [place], [address], [facility] 5 17:27:45 Medications Name Sig Start Date Stop Date Status Note LastModified by Organization Details LastModified Time losartan 50 mg tablet TAKE ONE TABLET BY MOUTH EVERY MORNING FOR BLOOD PRESSURE active Not Available Not Available No t Available famotidine 10 mg tablet TAKE 1 TABLET BY MOUTH EVERY DAY FOR STOMACH active Not Available Not Available No t Available ibuprofen 800 mg tablet Take 1 tablet 3 times a day by oral route. 12/09 completed Not Available Not Available Not Available clarithromy kev 500 mg tablet TAKE ONE TABLET BY MOUTH EVERY 12 HOURS FOR FOURTEEN DAYS 02/02 completed Not Available Not Available Not Available sumatriptan 100 mg tablet TAKE ONE TABLET BY MOUTH AT ONSET OF MIGRAINE, MAY REPEAT IN TWO HOURS IF HEADACHE RETURNS, NOT TO EXCEED 200 MG IN 24 HOURS. active Not Available Not Available No t Available sucralfate 100 mg/mL oral suspension TAKE 10 ML BY MOUTH 4 TIMES DAILY (WITH MEALS AND NIGHTLY) 12/09 completed Not Available Not Available Not Available meclizine 12.5 mg tablet Take 2 tablets 3 times a day by oral route for 30 days. 02/02 completed Not Available Not Available Not Available chlorthalid one 25 mg tablet Take 1 tablet every day by oral route. 12/09 completed Not Available Not Available Not Available aspirin 81 mg tablet,merline yed release Take 1 tablet every day by oral route. 12/09 completed Not Available Not Available Not Available amoxicillin 500 mg tablet TAKE TWO TABLETS BY MOUTH TWICE DAILY EVERY MORNING AND AT BEDTIME FOR FOURTEEN DAYS 02/02 completed Not Available Not Available Not Available amoxicillin 875 mg tablet TAKE ONE TABLET BY MOUTH EVERY 12 HOURS UNTIL FINISHED active Not Available Not Available No t Available dicyclomine 20 mg tablet TAKE 1 TABLET BY MOUTH TWICE DAILY NEEDED FOR ABDOMINAL PAIN active Not Available Not Available No t Available amitriptyli ne 10 mg tablet TAKE ONE TABLET BY MOUTH ONCE DAILY AT BEDTIME FOR MIGRAINE 07/14 completed Not Available Not Available Not Available polymyxin B sulfate 10,000 unit-trimet hoprim 1 mg/mL eye drops INSTILL 1 DROP INTO EACH EYE EVERY 3 HOURS FOR 7 DAYS WHILE AWAKE NO MORE THAN 6 PER 24 HOURS 12/09 completed Not Available Not Available Not Available losartan 25 mg tablet TAKE 1 TABLET BY MOUTH EVERY DAY FOR BLOOD PRESSURE 02/02 completed Not Available Not Available Not Available ibuprofen 400 mg tablet TAKE 1 TABLET BY MOUTH THREE TIMES DAILY NEEDED FOR FEVER OR PAIN active Not Available Not Available No t Available omeprazole 20 mg capsule,del ayed release TAKE ONE CAPSULE BY MOUTH TWICE DAILY EVERY MORNING AND AT BEDTIME FOR FOURTEEN DAYS FOR STOMACH 02/02 completed Not Available Not Available Not Available ondansetron 4 mg disintegrat ing tablet DISSOLVE 1 TABLET IN MOUTH EVERY 8 HOURS NEEDED FOR NAUSEA AND VOMITING 12/09 completed Not Available Not Available Not Available peg 3350-electr olytes 236 gram-22.74 gram-6.74 gram-5.86 gram solution TAKE 4000ML BY MOUTH ONCE FOR 1 DOSE 07/14 completed Not Available Not Available Not Available Vitals Date Recorded Body height Body mass index (BMI) Body weight Respiratory rate Body temperature Oxygen saturation Oxygen saturation in Arterial blood by Pulse oximetry Heart rate Systolic And Diastolic Provider Name and Address Organization Details Last Updated DateTime 5 173.99 cm 28.9 kg/m2 34802.8 9 g 18 /min 98 [degF] 97 % 97 % 77 /min 121/83 mm[Hg] Daisha Boyer [place] - [facility] 5 17:10:06 Date Recorded Body height Body temperature Body mass index (BMI) Body weight Oxygen saturation Oxygen saturation in Arterial blood by Pulse oximetry Heart rate Systolic And Diastolic Provider Name and Address Organization Details Last Updated DateTime 5 173.99 cm 98.1 [degF] 29.4 kg/m2 44744.9 g 98 % 98 % 68 /min 124/83 mm[Hg] Addie Zarate MA [facility] 5 17:33:50 Date Recorded Systolic And Diastolic Provider Name and Address Organization Details Last Updated DateTime 09/22/2019 147/93 mm[Hg] KAYLEIGH Pate-LORETTA Attn: Accounting,[address] [facility], [place], [address], [facility] 09/22/2019 16:04:41 Date Recorded Body temperature Body weight Body height Body mass index (BMI) Heart rate Systolic And Diastolic Provider Name and Address Organization Details Last Updated DateTime 0 98.7 [degF] 18539.5 4 g 173.99 cm 28.8 kg/m2 82 /min 140/90 mm[Hg] Vasiliy Malcolm [facility] 0 15:35:08 Date Recorded Body weight Body mass index (BMI) Body height Respiratory rate Oxygen saturation Oxygen saturation in Arterial blood by Pulse oximetry Heart rate Body temperature Systolic And Diastolic Provider Name and Address Organization Details Last Updated DateTime 4 32459.7 6 g 28.4 kg/m2 173.99 cm 18 /min 98 % 98 % 70 /min 98.1 [degF] 165/107 mm[Hg] Daisha Boyer [facility] 4 09:59:11 Date Recorded Body height Body mass index (BMI) Body weight Heart rate Body temperature Systolic And Diastolic Provider Name and Address Organization Details Last Updated DateTime 4 173.99 cm 28.5 kg/m2 95454.9 5 g 78 /min 98.1 [degF] 151/99 mm[Hg] Kate Sharma LPN [facility] 4 17:23:23 Social History Question Answer Notes LastModified by Organizat ion Details LastModified Time Tobacco Smoking Status Former Smoker Daisha yeboah [facility] 12/10/2023 09:56:22 What Is Your Level Of Caffeine Consumption? Occasional Soda Information not available 09/22/2019 What Type Of Diet Are You Following? REGULAR Information not available 09/22/2019 What Was The Date Of Your Most Recent Tobacco Screening? 08/24/2024 Information not available 08/24/2024 Seat Belts Used Routinely Yes Information not available 09/22/2019 Do You Use Sunscreen Routinely? No Information not available 09/22/2019 Has Tobacco Cessation Counseling Been Provided? No [email or web address] Information not available 12/10/2023 On What Date Was Tobacco Cessation Counseling Provided? 08/24/2024 Information not available 08/24/2024 Sex: Unknown Functional Status Question Answer Note LastModified by Organizat ion Details LastModified Time Do you use any illicit or recreational drugs? No [email or web address] Information not available 12/10/2023 Do you or have you ever used any other forms of tobacco or nicotine? No [email or web address] Information not available 12/10/2023 What is your level of alcohol consumption? None Information not available 09/22/2019 Mental Status None recorded. Family History Relationship Description Onset Age of this Age Resolved Age Notes LastModified by Organization Details LastModified Time Father Diabetes mellitus aleks Not available 2019 16:05:13 Medical History Condition Response Coronary Artery Disease N Other N Atrial Fibrillation N High Blood Pressure Y Thyroid Problems N Kidney or Bladder Problems N GI Problems Y Depression N COPD N Blood Clots N Have you had a mammogram in the last yea r? N Eating Disorder N Skin Problems N Anemia N Heart Attack (AR) N Diabetes N Anxiety Disorder N Muscle, Joint, or Bone Problems N Seizures/Epilepsy N Have you had a colonoscopy in the last 1 0 years? N Arthritis N Acid Reflux (GERD) N Cancer N Stroke N Asthma N Allergies N Have you had a PSA blood test in the las t year? N ADHD N Substance Abuse N High Cholesterol N Hepatitis N Liver Disease N Schizophrenia N Headaches N Osteoporosis N Heart Failure N Immunizations Vaccine Type Date Status Note Provider Nam e and Address Organization Details Recorded Time COVID-19, mRNA, LNP-S, PF, 30 mcg/0.3 mL dose 09/01/2020 completed Not Available [facility] 17:05:41 COVID-19, mRNA, LNP-S, PF, 30 mcg/0.3 mL dose 09/22/2020 completed Not Available [facility] 17:05:41 Tdap 09/22/2019 completed Vasiliy Malcolm [place], [place] - [facility] 09/22/2019 16:37:56 Past Encounters Encounter ID Performer Location Encounter Start Date Encounter Closed Date Diagnosis/Indication Diagnosis SNOMED-CT Code Diagnosis ICD10 Code Diagnosis Note [id number] Endy Robertson MD [facility] [address] [place] [address] 09/22/2019 15:09:57 09/24/2019 07:05:15 Essential hypertension 85970724 I10 Recheck blood pressure 147/93 L armUncontr olled Hypertensi on potential risks, heart attack, , stroke, kidney failure etc. Hypertensi on is the silent Killer Take your Hypertensi on medication daily keep appointmen ts stop concentrat ed sugars--fo llow 1500 meal plan exercise 50-60 minutes daily on most days see eye doctor once a year see dentist every 6 months Chronic back pain 765184 002 G89.29 stretching exercises propper body mechanics ice to back or heat to low back as necessary may use NSAIDs such as Ibuprofen with food as necessary if no contraindi cations Body mass index 25-29 - overweight 768211457 Z68.28 BMI 28.8Health y weight 125-175 History of fall 78017495 9 Z91.81 Fell 4 years agoNow having back pain Headache 06128174 R51 bia pentecostal areaTyleno l gives some relief with movement 06/17 Adult heal th examination 138979880 Z00.00 Gastroesop hageal reflux disease 365140304 K21.9 Has had for yearsHas stopped drinking alcohol [id number] Jan Garcia MD [facility] ([facility]) [address] [place] [address] 12/10/2023 08:52:48 12/16/2023 11:12:15 Gastroesophageal reflux disease 042415112 K21.9 Plan of care:-chec k h pylori breath test-start famotidine 10mg po qd-continu e omeprazole -follow up with GI doctor (appointme nt scheduled for Jan, 2024) Umbilical hernia 0251966 07 K42.9 Plan of care:-refe r to general surgeon.-r eference ER notes from 11/12/23 Irritable bowel syndrome characterized by alternating bowel habit 877319734 K58.9 Plan of care:-Cons ider probiotics -Take dicyclomin e as prescribed -Avoid sugar sweetened beverages- Utilize psyllium PRN-Pepper mint tea PRN-Follow up with GI doctor (upcoming appointmen t ) Obesity 376704195 E66.9 Pt to begin to engage in the following: -Healthy sleep hygiene (phone put away at night, lights out, set bedtime with at least 8 hours sleep)-Exe rcise 30-60 min daily-Make healthy diet choices (Mediterra nean)-Drin k only water or green tea Low back pain 895198616 M54.50 Plan of care:-obta in xray imaging-ut ilize tylenol. Advised to avoid ibuprofen PRN-refer to PT-will consider referral to ortho if no improvemen t in symptoms with conservati ve measures. History of syncope 22097 02126 84877 Z86.79 Plan of care:-foll ow up with cardiology for further testing- justen labs on patient-ER notes reviewed At [facility] ed risk of sexually transmitted infection 687800065 Z20.2 Discussed with patient importance of safe sexual practices including the use of condoms and notifying partners of symptoms as well as abstaining from sex when symptoms are present.Pt needs to retest with each new sexual partner. Essential hypertension 58717390 I10 Pt blood pressure is 165/107 in the clinic todayDiscu ssed with patient the goal of having a blood pressure of <140/90.Pt to monitor blood pressure at home and notify of >140/90 or <90/60.Edu cated on the risks of a heart attack, stroke, kidney damage, or additional issues if blood pressure is outside of recommende d ranges. Pt verbalized understand ing. Plan of care:-star t losartan 25mg po qd-follow up one month Dizziness 368410792 R42 Plan of care:-Disc ussed use of meclizine- Pt to follow up with physical therapy for ashley maneuver (see referral above to PT for low back pain)-Will consider ENT referral if no improvemen t in symptoms [id number] Jan Garcia MD [facility] ([facility]) [address] [place] [address] 02/03/2024 17:10:38 02/09/2024 08:06:51 History of Helicobacter pylori infection [id number] 3396779 Z86.19 Plan of care:-rete st h pylori to ensure treatment completed- Pt has follow up with GI doctor next week. Laboratory test result abnormal 854959305 R89.9 Plan of care:-foll ow up with urology due to blood in the urine-advi sed healthy diet to ensure patient triglyceri aydin and cholestero l are WNL Essential hypertension 68084781 I10 Pt blood pressure is 151/99 in the office todayDiscu ssed with patient the goal of having a blood pressure of <140/90.Pt to monitor blood pressure at home and notify of >140/90 or <90/60.Edu cated on the risks of a heart attack, stroke, kidney damage, or additional issues if blood pressure is outside of recommende d ranges. Pt verbalized understand ing. Migraine 00639697 G43.90 9 Plan of care:Neuro exam WNLDecreas e consumptio n of sugary and caffeinate d beveragesO ral hydration with water3 meals daily encouraged Vision exam encouraged if not UTDDecreas e screen timeKeep headache diary/logT ylenol or Motrin PRN but ideally not administer ed routinelyD iscussed additional supportive tx for use at homeChirop ractor care if desiredMon itor for new or worsening sx, RTC in 1 mo for f/u if no improvemen t Chronic low back pain 27 2955547 M54.50 Plan of care:-obta in xray imaging-ta ke naproxen bid prn-start PT-will consider referral to ortho if no improvemen t in symptoms with conservati ve measures. [id number] Jan Garcia MD [facility] ([facility]) [address] [place] [address] 07/14/2024 16:46:16 07/21/2024 12:33:22 Chronic low back pain 902377722 M54.50 G89.29 Plan of care:-pt completed PT-obtain MRI-refer to orthopedic spine surgeon-if loss of bladder control or saddle anesthesia , go to ER Essential hypertension 79707995 I10 Pt blood pressure is 151/99 in the office todayDiscu ssed with patient the goal of having a blood pressure of <140/90.Pt to monitor blood pressure at home and notify of >140/90 or <90/60.Edu cated on the risks of a heart attack, stroke, kidney damage, or additional issues if blood pressure is outside of recommende d ranges. Pt verbalized understand ing. Acute righ t otitis media 221952906 H66.91 Plan of Care:-Take medication s ad prescribed -Avoid water in ear as much as possible-W arm packs for comfort-Ib uprofen/Ty lenol for added pain relief-Do not use Q-tips in ear Chronic in tractable migraine without aura 8730630719 19043 G43.719 Plan of Care:Neuro exam WNLDecreas e consumptio n of sugary and caffeinate d beveragesO ral hydration with water3 meals daily encouraged Vision exam encouraged if not UTDDecreas e screen timeKeep headache diary/logT ylenol or Motrin PRN but ideally not administer ed routinelyU tilize sumatripta nDiscussed additional supportive tx for use at homeMonito r for new or worsening sx, RTC in 1 mo for f/u if no improvemen t [id number] Jan Garcia MD [facility] ([address] [address] 08/24/2024 17:04:40 08/31/2024 12:46:24 Refractory migraine without aura 295935867 G43.711 Plan of care:Neuro exam WNLDecreas e consumptio n of sugary and caffeinate d beveragesO ral hydration with water3 meals daily encouraged Vision exam encouraged if not UTDDecreas e screen timeKeep headache diary/logT ylenol or Motrin PRN but ideally not administer ed routinelyD iscussed additional supportive tx for use at homeMonito r for new or worsening sx, RTC in 1 mo for f/u if no improvemen t Health Concerns Section Related Observation LastModified by Organization Detai ls LastModified Time None Recorded Concern Status LastModified by Organization Details LastModified Time None Recorded Advance Directives Directive None Recorded Payers Insurance Date Sequence Insurance Name Policy Number Policy Lobo Covered Member ID Lobo Member ID Guarantor Name 12/25/2023 SLIDING FEE SCHEDULE - [facility] Onur Guillermo 09/22/2019 1 *SELF PAY* Kym Guillermo 12/10/2023 SLIDING FEE SCHEDULE - DISCOUNT Onur Guillermo Notes Date Note Type Note Provider Name and Address Organization Details Recorded Time 0 text/html HypertensionReported bypatient.Severity:mild Duration:has noted for years; diagnosed in 2016 while in [place] but takes no medicine Onset/Timing:worse Context:at rest Aggravating Factors:weight change;alcohol use;salt intake Associated Symptoms:no shortness of breath; no palpitations; no decline in exercise capacity; no snoring;fatigue; headaches, dizziness 39 y/o HM here to establish care and management of chronic medical problems he has not been taking any medications since diagnosis. DUNIA Pate Attn: Accounting,[address] [place], [address], [place] - [facility] 09/23/2019 11:59:50 4 text/html The patient presents to the office for a routine office visit. He is here to establish care. He stated that when he has had two syncopal episodes at work. He was seen in the ER twice for this. The following is the last ER note: Pt presents c/o epigastric abdominal pain. He has a PMHx of GERD on omeprazole. Recent evaluation at [facility] 11/05 for similar symptoms. RUQ US on 11/06 showed fatty liver and gallbladder sludge. CT abd/pel 11/05 showed umbilical hernia and left inguinal hernia containing fat. Echo 11/06 had normal EF and no significant abnormalities. Carotid duplex w/ <50% stenosis. Seen by GI (Dr. Tong Abraham). Pt had normal EGD but had persistent dyspepsia. DC on PPE and plan for outpatient HIDA scan. Seen earlier today by Dr. Lovett for persistent epigastric discomfort. Treated w/ zofran and morphine. DC w/ Rx sucralfate to f/u GI. Pt states he cannot leave. States Sx worse after eating a sandwich and drinking soda. Pt now also reporting dizziness. The patient denies additional episodes of syncope and is taking meclizine for dizziness. He has been taking meclizine. He was diagnosed with fatty liver (referred to GI doctor with upcoming appointment in Jan). . The patient endorses ongoing intermittent diarrhea with constipation worse after he eats. He endorses ongoing chronic low back pain. He denies any point of injury. 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 He has a hx of untreated HTN. ELIZABETH PATRICK NP Attn: Kenneth,[address] [facility], [place], [address], [facility] 12/10/2023 10:39:34 4 text/html The patient presents to the office for a routine office visit. He would like to be tested for H. pylori since he just recently completed treatment for this. He has a history of hypertension depression and chronic low back pain. He denies additional symptoms or concerns ELIZABETH PATRICK NP Attn: Accounting,[address] [facility], [place], [address], [facility] 02/07/2024 20:33:10 5 text/html The patient presents to the office for a routine office visit. He has a hx of low back pain and completed physical therapy without much improvement in his lower back pain He also endorses ongoing migraines that occur several times each weeks. He deneis additional symptoms or concerns. ELIZABETH PATRICK NP Attn: Accounting,[address] [facility], [place], [address], [facility] 07/20/2024 08:51:38 5 text/html The patient presents to the office for a routine offce visit. He is here to follow up on his MRI of his head as well as of his lumbar spine. He received results on the phone but wanted clarification. He stated that the neurologist he was referred to does not take self pay. He would like a referral somewhere else. ELIZABETH PATRICK NP Attn: Kenneth,[address] [facility], [place], [address], [facility] 08/31/2024 08:32:27
[2024-09-24 18:21] VITALS: BP 152/102; PULSE 81; RESP 16; TEMP 36.4; O2SAT 98
[2024-09-24] MEDS: dexAMETHasone SOD PHOS INJ 10 MG/ML 1 ML VIAL IV PUSH (21:47)
[2024-09-24] MEDS: METOCLOPRAMIDE HCL INJ 10 MG/2 ML VIAL IV PUSH (21:47)
[2024-09-24] MEDS: SODIUM CHLORIDE 0.9% IV 1,000 ML 999 ML IV CONT (21:47)
--- OUTSIDE RECORDS SUMMARY | 2024-09-24 22:16 | XMS_ITS | Clinical Summary ---
Author Organization [facility] Address [address] [place] [address] Care Team Providers Care Television Audio Engineer Name Role Phone Unavailable Primary Care Provider [...]
--- OUTSIDE RECORDS SUMMARY | 2024-09-24 22:16 | XMS_ITS | Referral Summary ---
Author Organization [facility] Address [address] [place] [address] Care Team Providers Care Senior Principal Name Role Phone No, Physician Primary Care Provider Allergies No known active allergies Medications ondansetron [...] 02/12/2024 Assessment & Plan (02/12/2024 11:08 AM SUPERVISOR TELEPHONE ANSWERING SERVICE): The patient presents with chronic lower abdominal [...] Comments Blood Pressure 133/98 02/24/2024 11:00 AM SUPERVISOR TELEPHONE ANSWERING SERVICE Pulse 67 02/24/2024 11:00 AM SUPERVISOR TELEPHONE ANSWERING SERVICE Temperature 36.4 C (97.6 F) 02/24/2024 10:32 AM SUPERVISOR TELEPHONE ANSWERING SERVICE Respiratory Rate 16 02/24/2024 11:00 AM SUPERVISOR TELEPHONE ANSWERING SERVICE Oxygen Saturation 97% 02/24/2024 11:00 AM SUPERVISOR TELEPHONE ANSWERING SERVICE Inhaled Oxygen Concentration - - Weight 85.7 kg (189 lb) 02/24/2024 9:20 AM SUPERVISOR TELEPHONE ANSWERING SERVICE Height 170.2 cm (5' 7) 02/12/2024 10:24 AM SUPERVISOR TELEPHONE ANSWERING SERVICE Body Mass Index 29.6 02/12/2024 10:24 AM SUPERVISOR TELEPHONE ANSWERING SERVICE Plan of Treatment Not on file Procedures Procedure Name Priority Date/Time Associated Diagnosis Comments COLONOSCOPY 02/24/2024 10:15 AM SUPERVISOR TELEPHONE ANSWERING SERVICE from Last 3 Months or Most Recently Relevant to Health Maintenance Results * Colonoscopy (02/24/2024 10:15 AM SUPERVISOR TELEPHONE ANSWERING SERVICE) Anatomical Region Laterality Modality Other Narrative Procedure Note Rick Ribera MD - 02/24/2024 10:15 AM CST [facility] ENDOSCOPY Patient Name: Onur Guillermo Procedure Date: 02/24/2024 10:15AM Date of : 1980 Admit Type: Outpatient Age: 44 Gender: Male Attending MD: Rick Ribera MD Room: [facility] ENDOSCOPY ROOM 04 Note Status: Finalized Procedure: [...] The scope was passed under direct vision.The CF-[id number] colonoscope was introduced through theanus and advanced [...] On: 02/24/2024 10:15 AM Recognized by the [place] [employer] for promoting quality in endoscopy Rick Ribera MD ENDOSCOPY PROCEDURES Niya l Result from Last 3 Months or Most Recently Relevant to Health Maintenance Care Teams Senior Principal Relationship Specialty Start Date End Date No, Physician PCP - General 11/12/23
--- OUTSIDE RECORDS SUMMARY | 2024-09-24 22:16 | XMS_ITS | Clinical Summary ---
Author Organization [facility] Address [facility] [place] [address] Care Team Providers Care Story Teller Name Role Phone Unavailable Primary Care Provider [...] st Contact Info) Description 01/13/2025 8:00 AM CLINIC PHYSICIAN DIRECTOR Office Visit [facility] - [address] [place] [address] Zach Black MD [address] [place] [address] 03/17/2025 2:00 PM CLINIC PHYSICIAN DIRECTOR Office Visit [facility] - [address], [address] [place] [address] Jigar Bourne MD [address] [place] [address] Health Maintenance Due Date Last Done Comments [...]
--- OUTSIDE RECORDS SUMMARY | 2024-09-24 22:16 | XMS_ITS | Clinical Summary ---
Author Organization [facility] Address [address] [place] [address] Care Team Providers Care Leather Whitener Name Role Phone No, Physician Primary Care Provider [phone] Allergies No known active allergies Medications ondansetron [...] 02/12/2024 Assessment & Plan (02/12/2024 11:08 AM PERCH MENDER): The patient presents with chronic lower abdominal [...] Comments Blood Pressure 133/98 02/24/2024 11:00 AM PERCH MENDER Pulse 67 02/24/2024 11:00 AM PERCH MENDER Temperature 36.4 C (97.6 F) 02/24/2024 10:32 AM PERCH MENDER Respiratory Rate 16 02/24/2024 11:00 AM PERCH MENDER Oxygen Saturation 97% 02/24/2024 11:00 AM PERCH MENDER Inhaled Oxygen Concentration - - Weight 85.7 kg (189 lb) 02/24/2024 9:20 AM PERCH MENDER Height 170.2 cm (5' 7) 02/12/2024 10:24 AM PERCH MENDER Body Mass Index 29.6 02/12/2024 10:24 AM PERCH MENDER Plan of Treatment Health Maintenance Due Date [...] Associated Diagnosis Comments COLONOSCOPY 02/24/2024 10:15 AM PERCH MENDER from Last 3 Months or Most Recently Relevant to Health Maintenance Results * Colonoscopy (02/24/2024 10:15 AM PERCH MENDER) Anatomical Region Laterality Modality Other Narrative Procedure Note Rick Ribera MD - 02/24/2024 10:15 AM CST [facility] GI ENDOSCOPY Patient Name: Onur Guillermo Procedure Date: 02/24/2024 10:15AM Date of : 1980 Admit Type: Outpatient Age: 44 Gender: Male Attending MD: Rick Ribera MD Room: [facility] ENDOSCOPY ROOM 04 Note Status: Finalized Procedure: [...] The scope was passed under direct vision.The [id number] colonoscope was introduced through theanus and advanced [...] On: 02/24/2024 10:15 AM Recognized by the [place] [employer] for promoting quality in endoscopy us Rick Ribera MD ENDOSCOPY PROCEDURES Niya l Result from Last 3 Months or Most Recently Relevant to Health Maintenance Care Teams Leather Whitener Relationship Specialty Start Date End Date No, Physician PCP - General 11/12/23
--- NOTE | 2024-09-24 22:38 | ED_ITS ---
HPI - General Adult General Chief complaint: Unspecified Stated complaint: headache, lower back pain Time Seen by Provider: 09/24/24 21:15 History of Present Illness HPI narrative: Patient is a 44-year-old , [id number]-[id number] male who presents to the ER with complaints of a headache and lower back pain. He reports he has been seen for these symptoms in the past. Patient reports he has syncopal episode approximately 1 year ago and has had intermittent symptoms since then. He reports he has done physical therapy on his back but it did not work. Patient reports his headache worsened earlier this morning around 3:00 a.m. and woke him from his sleep. Patient endorses bilateral, intermittent lower extremity numbness and tingling. He endorses a history of high blood pressure and takes losartan. Patient denies any recent fevers, chest pain, shortness of breath, urinary symptoms. Related Data Home Medications ?Medication ?Instructions ?Recorded ?Confirmed ?Last Taken ?Type omeprazole 20 mg capsule,delayed 20 mg PO BID 11/06/23 11/06/23 Unknown History release Allergies Allergy/AdvReac Type Severity Reaction Status Date / Time No Known Allergies Allergy Verified 11/07/23 16:11 Review of Systems Review of Systems: All systems reviewed & are unremarkable except as noted in HPI and below PMFSH Past Medical History Medical History GERD with esophagitis Social History Social History Smoking status: Never smoker Alcohol intake: never Substance use: never Do You Feel Safe in your Home?: Yes Lack of Transportation: No Lack of Food: Never True Current Housing: I Have Housing Concerned About Future Housing: No Difficulty Paying Gas/Electric Bills: No Difficulty Paying for Meds: No Currently Unemployed: No Education: High School Diploma/GED Difficulty w/ Childcare or Family Care: No Spiritual care concerns: No Exam Narrative: GENERAL: Well appearing, well-nourished, non-toxic, in no acute distress. HEAD: Normocephalic, atraumatic. NECK: Supple. No adenopathy, no masses. RESPIRATORY: Airway patent, respirations nonlabored. Clear to auscultation bilaterally, no rales, rhonchi, wheezing. CARDIOVASCULAR: Regular rate and rhythm without murmurs, rubs, or gallops. Peripheral pulses 2+ and equal bilaterally. ABDOMINAL: Soft, nontender, nondistended, no hepatosplenomegaly. Normoactive BS. MUSCULOSKELETAL: Moves all extremities. Strength/ROM intact without gross deformities. + positive straight leg test bilaterally. SKIN: Warm, dry, normal color. No rashes. NEURO: A&O X3. Speech clear. Cranial nerves II-XII intact. No ataxic movements. PSYCHIATRIC: Appropriate mood and affect. Normal interaction. Course Vital Signs Vital signs: Vital Signs Temperature 36.4 C 09/24/24 18:21 Pulse Rate 81 09/24/24 18:21 Respiratory Rate 16 09/24/24 18:21 Blood Pressure 152/102 H 09/24/24 18:21 Pulse Oximetry 98 09/24/24 18:21 Temperature 36.4 C 09/24/24 18:21 Pulse Rate 81 09/24/24 18:21 Respiratory Rate 16 09/24/24 18:21 Blood Pressure 152/102 H 09/24/24 18:21 Pulse Oximetry 98 09/24/24 18:21 Medical Decision Making MDM Narrative Medical decision making narrative: Patient is a 44-year-old , [id number]-[id number] male who presents to the ER with complaints of a headache and lower back pain. He reports he has been seen for these symptoms in the past. Patient reports he has syncopal episode approximately 1 year ago and has had intermittent symptoms since then. He reports he has done physical therapy on his back but it did not work. Patient reports his headache worsened earlier this morning around 3:00 a.m. and woke him from his sleep. Patient endorses bilateral, intermittent lower extremity numbness and tingling. He endorses a history of high blood pressure and takes losartan. Patient denies any recent fevers, chest pain, shortness of breath, urinary symptoms. Labs Ordered: None necessary Imaging Ordered: CT head, CT cervical spine, CT lumbar spine Medications Ordered: 1 L normal saline IV bolus, Reglan IV, Decadron IV, Benadryl IV Results: Patient's CT lumbar spine indicates no acute fracture or traumatic malalignment in the lumbar spine. No severe central canal or neural foraminal narrowing.Pt's cervical spine CT scan indicates No acute fracture or traumatic malalignment in the cervical spine. Pt's brain CT scan indicates No acute intracranial hemorrhage or extra-axial fluid collection. No hydrocephalus, mass, or herniation. No acute ischemic infarct. Unremarkable dural venous sinus attenuation. No acute osseous abnormality. Retention cyst/polyp in the left maxillary sinus, the remaining aerated spaces are clear. Diagnosis: Degenerative disc disease, migraine headache Consults: neurosurgery (outpatient) Patient Education/Shared MDM: Results of imaging shared with patient. He endorses significant improvement of symptoms following medication administration. Patient strongly advised to maintain hydration status upon discharge and follow-up with his PCP and neurosurgery as soon as possible. Patient reports in the past he has been told that there was something wrong with his back. Previous CT scan reports and today's CT scan reports were printed for patient. It was explained to patient that all of he CT scans identified some chronic back issues but there was nothing came urgent or acute on today's findings. He will be discharged home with a prescription for ibuprofen and muscle relaxants. Strict return precautions provided. Patient verbalized understanding and is in agreement with plan. Vital signs stable at time of discharge. All questions answered. Differential Diagnosis Differential Diagnosis: Migraine headache, subdural hematoma, degenerative disc disease, lumbar radiculopathy, sciatica Vital Signs Vital Signs: Vital Signs Temperature 36.4 C 09/24/24 18:21 Pulse Rate 81 09/24/24 18:21 Respiratory Rate 16 09/24/24 18:21 Blood Pressure 152/102 H 09/24/24 18:21 Pulse Oximetry 98 09/24/24 18:21 Temperature 36.4 C 09/24/24 18:21 Pulse Rate 81 09/24/24 18:21 Respiratory Rate 16 09/24/24 18:21 Blood Pressure 152/102 H 09/24/24 18:21 Pulse Oximetry 98 09/24/24 18:21 Imaging Data Attestation: I personally reviewed and interpreted this imaging study as follows: Radiologist's impression: Impressions Head CT 09/24/24 22:14 IMPRESSION: No acute intracranial process. Cervical Spine CT 09/24/24 22:18 IMPRESSION: No acute fracture or traumatic malalignment in the cervical spine. Lumbar Spine CT 09/24/24 23:07 IMPRESSION: No acute fracture or traumatic malalignment in the lumbar spine. No severe central canal or neural foraminal narrowing. Discharge Plan Discharge Clinical Impression: Migraine headache, Degenerative disc disease Patient Disposition: Home Condition: Stable Instructions: Antibiotic Form Additional Instructions: Please return to the ER with any worsening symptoms. Follow-up with primary care provider in Neurosurgery as soon as possible. Take all medications as prescribed, including regularly scheduled medications. Patient Language: Gabonese Prescriptions: New cyclobenzaprine 5 mg tablet 5 mg PO TID PRN (Reason: muscle spasm) Qty: 20 0RF ibuprofen 800 mg tablet 800 mg PO TID PRN (Reason: pain) Qty: 30 0RF No Action omeprazole 20 mg Capsule,Delayed Release(Dr/Ec) 20 mg PO BID meclizine 12.5 mg Tablet 12.5 mg PO TID PRN (Reason: dizziness) Qty: 30 0RF Follow-up/Referrals: Zulema Mead MD [Physician] - (neurosurgery) PHYSICIAN,SERIALS LIBRARIAN [Primary Care Provider] - Time of Disposition: 00:19
== END 2024-09-25 00:36 | disposition home or self-care (01) ==
PROVIDERS: Emergency Provider Registered Nurse
DX: G43.909 Migraine, unspecified, not intractable, without status migrainosus (principal); M51.369 Other intervertebral disc degeneration, lumbar region without mention of lumbar back pain or lower extremity pain; I10 Essential (primary) hypertension; K21.00 Gastro-esophageal reflux disease with esophagitis, without bleeding
CPT/HCPCS: 70450; 72125; 72131; 96361; 96374; 96375; 99284; J1100; J1200; J2765; J7030